=== PATIENT | male | born 1990 | race Caucasian/White ===

== ENCOUNTER 2018-12-02 06:18 | Observation (INO) | payer OTHER ==
--- NOTE | 2018-12-02 07:35 | ED ---
Altered Mental Status HPI - General Chief Complaint: Altered Mental Status Stated Complaint: altered mental status Time Seen by Provider: 12/02/18 07:00 Source: patient, family, RN notes reviewed Mode of arrival: ambulatory Limitations: altered mental status - History of Present Illness Initial Comments: This is a 28-year-old male with a history of asthma who does smoke who apparently was with her friend of his last night who ended up coming to the hospital and requiring intubation for respiratory failure for a possible drug overdose. Some clear with the patient's friend ingested or used a. Per a friend this with the patient at this time he did stumble and fall hitting his head prior to arrival his mother was called about 5 AM and notified of this event. He is very confused anxious fidgety no nausea vomiting no fevers chills sweats or other symptoms. He was found there are 17 tramadol and 21 amitriptyline missing from his friend's prescription and is unclear whether this patient took it or not. No other modifying factors. He seems a have no focal deficits per family MD Complaint: altered mental status - Related Data Home Medications Medication Instructions Recorded Confirmed Albuterol Inhaler [Ventolin Hfa 2 puff INHALATION RT-Q6H PRN 12/02/18 12/02/18 Inhaler] Allergies Allergy/AdvReac Type Severity Reaction Status Date / Time tetanus and diphtheria Allergy Unknown Verified 12/02/18 07:47 toxoids Childhood Review of Systems ROS Statement: Those systems with pertinent positive or pertinent negative responses have been documented in the HPI. ROS Other: All systems not noted in ROS Statement are negative. Limitations: ROS unobtainable due to patients medical condition Past Medical History Past Medical History: Asthma History of Any Multi-Drug Resistant Organisms: None Reported Past Surgical History: No Surgical Hx Reported Past Psychological History: No Psychological Hx Reported Smoking Status: Current every day smoker Past Alcohol Use History: Occasional Past Drug Use History: Marijuana General Exam - General Exam Comments Initial Comments: This is a well-developed well-nourished awake alert but confused male Limitations: altered mental status General appearance: alert, lethargic, other (Confused) Head exam: Present: atraumatic, normocephalic, normal inspection Eye exam: Present: normal appearance, PERRL, EOMI. Absent: scleral icterus, conjunctival injection, periorbital swelling ENT exam: Present: normal exam, mucous membranes moist Neck exam: Present: normal inspection, full ROM, other (No stridor JVD or bruits ). Absent: tenderness, meningismus, lymphadenopathy Respiratory exam: Present: normal lung sounds bilaterally. Absent: respiratory distress, wheezes, rales, rhonchi, stridor Cardiovascular Exam: Present: regular rate, normal rhythm, normal heart sounds. Absent: systolic murmur, diastolic murmur, rubs, gallop, clicks GI/Abdominal exam: Present: soft, normal bowel sounds. Absent: distended, tenderness, guarding, rebound, rigid Rectal exam: Present: deferred Extremities exam: Present: normal inspection, full ROM, normal capillary refill. Absent: tenderness, pedal edema, joint swelling, calf tenderness Back exam: Present: normal inspection, full ROM. Absent: tenderness, rash noted Neurological exam: Present: alert, altered, CN II-XII intact. Absent: motor sensory deficit Psychiatric exam: Present: depressed, flat affect Skin exam: Present: warm, dry, intact, normal color. Absent: rash Course Vital Signs 12/02/18 12/02/18 12/02/18 06:18 07:45 08:00 Temperature 97.9 F Pulse Rate 58 L 55 L 56 L Respiratory 12 Rate Blood Pressure 144/81 128/85 132/89 O2 Sat by Pulse 99 97 97 Oximetry 12/02/18 12/02/18 12/02/18 08:19 08:30 08:45 Temperature Pulse Rate 54 L 50 L 67 Respiratory Rate Blood Pressure 124/78 124/78 124/78 O2 Sat by Pulse 95 97 97 Oximetry 12/02/18 12/02/18 12/02/18 09:00 09:15 09:30 Temperature Pulse Rate 51 L 60 61 Respiratory Rate Blood Pressure 124/78 124/78 124/78 O2 Sat by Pulse 98 98 98 Oximetry 12/02/18 12/02/18 12/02/18 09:45 10:00 10:30 Temperature Pulse Rate 71 77 68 Respiratory Rate Blood Pressure 124/78 135/91 135/91 O2 Sat by Pulse 98 99 94 L Oximetry 12/02/18 12/02/18 12/02/18 11:00 11:30 12:00 Temperature Pulse Rate 77 61 50 L Respiratory Rate Blood Pressure 135/91 135/91 135/91 O2 Sat by Pulse 93 L 96 97 Oximetry - Reevaluation(s) Reevaluation #1: 12/02/18 13:01 Patient did seem a little more responsive after period time he was done which showed sinus bradycardia 46. Interval 134 QRS duration 96 QT since QTC of 466/7 Reevaluation #2: 12/02/18 13:01 Poison control was contacted and recommendation is for admission continued IV hydration repeat lab work seizure precautions repeat EKGs. I did discuss the case with Dr. Salter. Patient will be admitted Medical Decision Making - Lab Data Result diagrams: 12/02/18 07:25 12/02/18 07:25 Lab Results 12/02/18 12/02/18 12/02/18 Range/Units 07:25 07:25 07:25 WBC (3.8-10.6) k/uL RBC (4.30-5.90) m/uL Hgb (13.0-17.5) gm/dL Hct (39.0-53.0) % MCV (80.0-100.0) fL MCH (25.0-35.0) pg MCHC (31.0-37.0) g/dL RDW (11.5-15.5) % Plt Count (150-450) k/uL Neutrophils % % Lymphocytes % % Monocytes % % Eosinophils % % Basophils % % Neutrophils # (1.3-7.7) k/uL Lymphocytes # (1.0-4.8) k/uL Monocytes # (0-1.0) k/uL Eosinophils # (0-0.7) k/uL Basophils # (0-0.2) k/uL Sodium 143 (137-145) mmol/L Potassium 4.4 (3.5-5.1) mmol/L Chloride 110 H (98-107) mmol/L Carbon Dioxide 29 (22-30) mmol/L Anion Gap 4 mmol/L BUN 15 (9-20) mg/dL Creatinine 1.04 (0.66-1.25) mg/dL Est GFR (CKD-EPI)AfAm >90 (>60 ml/min/1.73 sqM) Est GFR (CKD-EPI)NonAf >90 (>60 ml/min/1.73 sqM) Glucose 95 (74-99) mg/dL Osmolality 296 (280-301) mosm/kg Plasma Lactic Acid Oc 0.7 (0.7-2.0) mmol/L Calcium 9.1 (8.4-10.2) mg/dL Total Bilirubin 0.8 (0.2-1.3) mg/dL AST 26 (17-59) U/L ALT 30 (21-72) U/L Alkaline Phosphatase 43 (38-126) U/L Ammonia (<30) umol/L Total Creatine Kinase 222 H (55-170) U/L CK-MB (CK-2) 2.9 H (0.0-2.4) ng/mL CK-MB (CK-2) Rel Index 1.3 Total Protein 6.4 (6.3-8.2) g/dL Albumin 3.9 (3.5-5.0) g/dL Salicylates <1.0 mg/dL Urine Opiates Screen (NotDetected) Ur Oxycodone Screen (NotDetected) Urine Methadone Screen (NotDetected) Ur Propoxyphene Screen (NotDetected) Acetaminophen <10.0 ug/mL Ur Barbiturates Screen (NotDetected) U Tricyclic Antidepress (NotDetected) Ur Phencyclidine Scrn (NotDetected) Ur Amphetamines Screen (NotDetected) U Methamphetamines Scrn (NotDetected) U Benzodiazepines Scrn (NotDetected) Urine Cocaine Screen (NotDetected) U Marijuana (THC) Screen (NotDetected) Serum Alcohol <10 mg/dL 12/02/18 12/02/18 12/02/18 Range/Units 07:25 07:25 10:29 WBC 6.4 (3.8-10.6) k/uL RBC 5.21 (4.30-5.90) m/uL Hgb 15.1 (13.0-17.5) gm/dL Hct 47.6 (39.0-53.0) % MCV 91.5 (80.0-100.0) fL MCH 28.9 (25.0-35.0) pg MCHC 31.6 (31.0-37.0) g/dL RDW 13.9 (11.5-15.5) % Plt Count 176 (150-450) k/uL Neutrophils % 55 % Lymphocytes % 34 % Monocytes % 5 % Eosinophils % 3 % Basophils % 1 % Neutrophils # 3.5 (1.3-7.7) k/uL Lymphocytes # 2.2 (1.0-4.8) k/uL Monocytes # 0.3 (0-1.0) k/uL Eosinophils # 0.2 (0-0.7) k/uL Basophils # 0.0 (0-0.2) k/uL Sodium (137-145) mmol/L Potassium (3.5-5.1) mmol/L Chloride (98-107) mmol/L Carbon Dioxide (22-30) mmol/L Anion Gap mmol/L BUN (9-20) mg/dL Creatinine (0.66-1.25) mg/dL Est GFR (CKD-EPI)AfAm (>60 ml/min/1.73 sqM) Est GFR (CKD-EPI)NonAf (>60 ml/min/1.73 sqM) Glucose (74-99) mg/dL Osmolality (280-301) mosm/kg Plasma Lactic Acid Oc (0.7-2.0) mmol/L Calcium (8.4-10.2) mg/dL Total Bilirubin (0.2-1.3) mg/dL AST (17-59) U/L ALT (21-72) U/L Alkaline Phosphatase (38-126) U/L Ammonia 10 (<30) umol/L Total Creatine Kinase (55-170) U/L CK-MB (CK-2) (0.0-2.4) ng/mL CK-MB (CK-2) Rel Index Total Protein (6.3-8.2) g/dL Albumin (3.5-5.0) g/dL Salicylates mg/dL Urine Opiates Screen Not Detected (NotDetected) Ur Oxycodone Screen Not Detected (NotDetected) Urine Methadone Screen Not Detected (NotDetected) Ur Propoxyphene Screen Not Detected (NotDetected) Acetaminophen ug/mL Ur Barbiturates Screen Not Detected (NotDetected) U Tricyclic Antidepress Detected H (NotDetected) Ur Phencyclidine Scrn Not Detected (NotDetected) Ur Amphetamines Screen Not Detected (NotDetected) U Methamphetamines Scrn Not Detected (NotDetected) U Benzodiazepines Scrn Not Detected (NotDetected) Urine Cocaine Screen Not Detected (NotDetected) U Marijuana (THC) Screen Detected H (NotDetected) Serum Alcohol mg/dL - EKG Data -: EKG Interpreted by Me EKG shows normal: sinus rhythm (Sinus bradycardia rate of 54. Interval 140 QRS duration 80 QT since QTC 4:[address]-T wave changes are noted T waves are somewhat prominent) - Radiology Data Radiology results: report reviewed (Imaging was reviewed no acute findings.), image reviewed Critical Care Time Critical Care Time: Yes Critical Care Time: 39 minutes of critical care time which includes initial presentation with history physical labs x-rays several reevaluation the patient discussed with the patient's mother on several occasions. Poison control was contacted by nursing staff. Patient case discussed with the main physician initial orders and documentation of the above Disposition Clinical Impression: Altered mental status, Tricyclic antidepressant overdose of undetermined intent , Bradycardia, Asthma, Smoking Disposition: ADMITTED IP TO THIS [facility] Condition: Serious Referrals: None,Stated [Primary Care Provider] - 1-2 days
[2018-12-02 07:50] LABS: Basophils % (A) 1 %; Eosinophils # (A) 0.2 k/uL (0-0.7); Eosinophils % (A) 3 %; HCT 47.6 % (39.0-53.0); HGB 15.1 gm/dL (13.0-17.5); Lymphocytes # (A) 2.2 k/uL (1.0-4.8); Lymphocytes % (A) 34 %; MCH 28.9 pg (25.0-35.0); MCHC 31.6 g/dL (31.0-37.0); MCV 91.5 fL (80.0-100.0); Mean Platelet Volume 7.5; Monocytes # (A) 0.3 k/uL (0-1.0); Monocytes % (A) 5 %; Neutrophils # (A) 3.5 k/uL (1.3-7.7); Neutrophils % (A) 55 %; Platelet Count 176 k/uL (150-450); RBC 5.21 m/uL (4.30-5.90); RDW 13.9 % (11.5-15.5); WBC 6.4 k/uL (3.8-10.6)
[2018-12-02 08:06] LABS: ALT 30 U/L (21-72); AST 26 U/L (17-59); Acetaminophen <10.0 ug/mL; Albumin 3.9 g/dL (3.5-5.0); Alcohol <10 mg/dL; Alkaline Phosphatase 43 U/L (38-126); Anion Gap 4 mmol/L; Blood Urea Nitrogen 15 mg/dL (9-20); Calcium 9.1 mg/dL (8.4-10.2); Carbon Dioxide 29 mmol/L (22-30); Chloride 110 mmol/L (98-107); Glucose 95 mg/dL (74-99); Potassium 4.4 mmol/L (3.5-5.1); Salicylate <1.0 mg/dL; Sodium 143 mmol/L (137-145); Total Bilirubin 0.8 mg/dL (0.2-1.3); Total Protein 6.4 g/dL (6.3-8.2)
--- NOTE | 2018-12-02 08:19 | CT ---
EXAMINATION TYPE: CT brain wo con DATE OF EXAM: 12/02/2018 COMPARISON: None HISTORY: Altered mental status CT DLP: 1212.4 mGycm. Automated Exposure Control for Dose Reduction was Utilized. TECHNIQUE: CT scan of the head is performed without contrast. FINDINGS: There is no acute intracranial hemorrhage, mass effect, or midline shift identified. The ventricles and sulci are within normal limits in size. Scant mucosal thickening is seen within the ethmoid sinuses. The globes are intact and the remaining visualized sinuses are clear. IMPRESSION: No acute intracranial hemorrhage, mass effect, or midline shift is seen.
[2018-12-02 08:23] LABS: Creatine Kinase MB 2.9 ng/mL (0.0-2.4)
--- NOTE | 2018-12-02 08:23 | XR ---
EXAMINATION TYPE: XR chest 2V DATE OF EXAM: 12/02/2018 COMPARISON: NONE HISTORY: Lethargy and weakness per technologist. Cough per order. TECHNIQUE: Frontal and lateral views of the chest are obtained. FINDINGS: Overlying EKG leads are seen. There is no focal air space opacity, pleural effusion, or pn eumothorax seen. The cardiac silhouette size is within normal limits. The osseous structures are i ntact. IMPRESSION: No acute cardiopulmonary process.
[2018-12-02] MEDS ORDERED: SODIUM CHLORIDE 0.9% 1,000 ML IV STA (08:53)
[2018-12-02 11:10] LABS: Amphetamine Screen,Urine Not Detected (NotDetected); Barbiturate Screen,Urine Not Detected (NotDetected); Benzodiazepines Screen,Urine Not Detected (NotDetected); Cocaine Screen,Urine Not Detected (NotDetected); Methadone Screen, Urine Not Detected (NotDetected); Opiate Screen,Urine Not Detected (NotDetected); Oxycodone Screen, Urine Not Detected (NotDetected); Phencyclidine Screen,Urine Not Detected (NotDetected); Tricyclic Antidepressant,Urine Detected (NotDetected); Urn Cannabinoid Scrn Detected (NotDetected)
[2018-12-02] MEDS ORDERED: NALOXONE 0.4 MG/ML 1 ML VIAL IV PRN (13:05)
--- NOTE | 2018-12-02 17:10 | P.HPIM ---
History of Present Illness 28-year-old was brought in by the family as patient has been acting abnormal and excessively drowsy patient is oriented 3 when I valid the patient. Unable to get much of the history from the patient as patient is excessively drowsy. Heparin drip patient was brought in by the family as he is more confused and anxious. Patient was believed to use tramadol and amitriptyline are is that although there is no clear-cut evidence patient is being admitted for monitoring overnight to monitor daily and when necessary intervals on telemetry. Patient urine drug screen is positive for tricyclic antidepressants. Patient admits to taking excessive sleeping pill although unintentional not trying to hurt himself patient says he is not depressed. Review of Systems REVIEW OF SYSTEMS: CONSTITUTIONAL: No fever, no malaise, no fatigue. HEENT: No recent visual problems or hearing problems. Denied any sore throat. CARDIOVASCULAR: No chest pain, orthopnea, PND, no palpitations, no syncope. PULMONARY: No shortness of breath, no cough, no hemoptysis. GASTROINTESTINAL: No diarrhea, no nausea, no vomiting, no abdominal pain. NEUROLOGICAL: No headaches, no weakness, no numbness. HEMATOLOGICAL: Denies any bleeding or petechiae. GENITOURINARY: Denies any burning micturition, frequency, or urgency. MUSCULOSKELETAL/RHEUMATOLOGICAL: Denies any joint pain, swelling, or any muscle pain. ENDOCRINE: Denies any polyuria or polydipsia. The rest of the 14-point review of systems is negative. Past Medical History Past Medical History: Asthma Additional Past Medical History / Comment(s): age 20 -dog bite(plastic sx to facial wounds), pt wants a pne vaccine while here. History of Any Multi-Drug Resistant Organisms: None Reported Past Surgical History: No Surgical Hx Reported Additional Past Surgical History / Comment(s): plastic sx to lip,oral,nose d/t dog bite. Past Anesthesia/Blood Transfusion Reactions: No Reported Reaction Additional Past Anesthesia/Blood Transfusion Reaction / Comment(s): pt has never recieved a blood transfusion Smoking Status: Current every day smoker - Past Family History Mother History Unknown: Yes Father History Unknown: Yes Medications and Allergies Home Medications Medication Instructions Recorded Confirmed Type Albuterol Inhaler [Ventolin Hfa 2 puff INHALATION RT-Q6H PRN 12/02/18 12/02/18 History Inhaler] Allergies Allergy/AdvReac Type Severity Reaction Status Date / Time tetanus and diphtheria Allergy Unknown Verified 12/02/18 07:47 toxoids Childhood Physical Exam Vitals: Vital Signs Temp Pulse Resp BP Pulse Ox 12/02/18 13:53 97.6 F 12/02/18 12:00 50 L 135/91 97 12/02/18 11:30 61 135/91 96 12/02/18 11:00 77 135/91 93 L 12/02/18 10:30 68 135/91 94 L 12/02/18 10:00 77 135/91 99 12/02/18 09:45 71 124/78 98 12/02/18 09:30 61 124/78 98 12/02/18 09:15 60 124/78 98 12/02/18 09:00 51 L 124/78 98 12/02/18 08:45 67 124/78 97 12/02/18 08:30 50 L 124/78 97 12/02/18 08:19 54 L 124/78 95 12/02/18 08:00 56 L 132/89 97 12/02/18 07:45 55 L 128/85 97 12/02/18 06:18 97.9 F 58 L 12 144/81 99 Intake and Output 12/02/18 12/02/18 12/02/18 06:59 14:59 22:59 Other: Weight 81.193 kg PHYSICAL EXAMINATION: GENERAL: The patient is drowsy and oriented x3, not in any acute distress. Well developed, well nourished. HEENT: Pupils are round and equally reacting to light. EOMI. No scleral icterus. No conjunctival pallor. Normocephalic, atraumatic. No pharyngeal erythema. No thyromegaly. CARDIOVASCULAR: S1 and S2 present. No murmurs, rubs, or gallops. PULMONARY: Chest is clear to auscultation, no wheezing or crackles. ABDOMEN: Soft, nontender, nondistended, normoactive bowel sounds. No palpable organomegaly. MUSCULOSKELETAL: No joint swelling or deformity. EXTREMITIES: No cyanosis, clubbing, or pedal edema. NEUROLOGICAL: Gross neurological examination did not reveal any focal deficits. SKIN: No rashes. Results CBC & Chem 7: 12/02/18 07:25 12/02/18 07:25 Labs: Abnormal Lab Results - Last 24 Hours (Table) 12/02/18 12/02/18 12/02/18 Range/Units 07:25 07:25 10:29 Chloride 110 H (98-107) mmol/L Total Creatine Kinase 222 H (55-170) U/L CK-MB (CK-2) 2.9 H (0.0-2.4) ng/mL U Tricyclic Antidepress Detected H (NotDetected) U Marijuana (THC) Screen Detected H (NotDetected) Assessment and Plan Plan: Possible unintentional overdose on tramadol and immediate A and: Patient will be monitored overnight for any seizures are daily prolongation from tramadol and amitriptyline . She denied any suicidal ideations -Chronic moderate intermittent asthma without any acute exacerbation -Nicotine abuse: When patient is more awake will provide counseling regarding this -Marijuana use -Due to prophylaxis: Early ambulation
[2018-12-02] MEDS: SODIUM CHLORIDE 0.9% 1,000 ML IV SCH ×2 (22:43→22:44)
[2018-12-03 02:45] LABS: Basophils % (A) 1 %; Eosinophils # (A) 0.2 k/uL (0-0.7); Eosinophils % (A) 3 %; HCT 46.1 % (39.0-53.0); HGB 14.6 gm/dL (13.0-17.5); Lymphocytes # (A) 2.1 k/uL (1.0-4.8); Lymphocytes % (A) 37 %; MCH 29.3 pg (25.0-35.0); MCHC 31.7 g/dL (31.0-37.0); MCV 92.3 fL (80.0-100.0); Mean Platelet Volume 7.5; Monocytes # (A) 0.3 k/uL (0-1.0); Monocytes % (A) 5 %; Neutrophils # (A) 3.1 k/uL (1.3-7.7); Neutrophils % (A) 53 %; Platelet Count 154 k/uL (150-450); RDW 13.9 % (11.5-15.5); WBC 5.8 k/uL (3.8-10.6)
[2018-12-03 02:55] LABS: ALT 29 U/L (21-72); AST 17 U/L (17-59); Albumin 3.1 g/dL (3.5-5.0); Alkaline Phosphatase 39 U/L (38-126); Anion Gap 2 mmol/L; Blood Urea Nitrogen 16 mg/dL (9-20); Calcium 8.6 mg/dL (8.4-10.2); Carbon Dioxide 28 mmol/L (22-30); Chloride 110 mmol/L (98-107); Glucose 87 mg/dL (74-99); Potassium 4.6 mmol/L (3.5-5.1); Sodium 140 mmol/L (137-145); Total Bilirubin 0.4 mg/dL (0.2-1.3); Total Protein 5.4 g/dL (6.3-8.2)
[2018-12-03] MEDS: SODIUM CHLORIDE 0.9% 1,000 ML IV SCH (05:58)
[2018-12-03 09:17] VITALS: BP 111/67; PULSE 74; RESP 20; TEMP 98.3
--- NOTE | 2018-12-03 10:38 | P.DS ---
Providers Date of admission: 12/02/18 13:05 Attending physician: Izabela Salter Primary care physician: Stated None Hospital Course: 28-year-old was brought in by the family as patient has been acting abnormal and excessively drowsy patient is oriented 3 when I valid the patient. Unable to get much of the history from the patient as patient is excessively drowsy. Heparin drip patient was brought in by the family as he is more confused and anxious. Patient was believed to use tramadol and amitriptyline are is that although there is no clear-cut evidence patient is being admitted for monitoring overnight to monitor daily and when necessary intervals on telemetry. Patient urine drug screen is positive for tricyclic antidepressants. Patient admits to taking excessive sleeping pill although unintentional not trying to hurt himself patient says he is not depressed. 12/03/2018 Patient is more awake bit tremulous from tramadol overdose no seizures will repeat the EKG if there is no MN prolongation or QT prolongation patient will be discharged today. Patient is awake alert oriented 3 PHYSICAL EXAMINATION: GENERAL: The patient is alert and oriented x3, not in any acute distress. Well developed, well nourished. Mild tremor HEENT: Pupils are round and equally reacting to light. EOMI. No scleral icterus. No conjunctival pallor. Normocephalic, atraumatic. No pharyngeal erythema. No thyromegaly. CARDIOVASCULAR: S1 and S2 present. No murmurs, rubs, or gallops. PULMONARY: Chest is clear to auscultation, no wheezing or crackles. ABDOMEN: Soft, nontender, nondistended, normoactive bowel sounds. No palpable organomegaly. MUSCULOSKELETAL: No joint swelling or deformity. EXTREMITIES: No cyanosis, clubbing, or pedal edema. NEUROLOGICAL: Gross neurological examination did not reveal any focal deficits. SKIN: No rashes. Assessment and Plan Plan: unintentional overdose on tramadol and amytriptyline: Patient is not depressedL ideations -Chronic moderate intermittent asthma without any acute exacerbation -Nicotine abuse: When patient is more awake will provide counseling regarding this -Marijuana use Patient Condition at Discharge: Serious Plan - Discharge Summary Discharge Rx Participant: No New Discharge Prescriptions: No Action Albuterol Inhaler [Ventolin Hfa Inhaler] 2 puff INHALATION RT-Q6H PRN PRN Reason: Shortness Of Breath Discharge Medication List Albuterol Inhaler [Ventolin Hfa Inhaler] 2 puff INHALATION RT-Q6H PRN 12/02/18 [ History] Follow up Appointment(s)/Referral(s): None,Stated [Primary Care Provider] - 1-2 days Discharge Disposition: HOME SELF-CARE
== END 2018-12-03 11:16 | disposition home or self-care (01) ==
LOC: EC 06:18 → 3SCARD 13:05 → INTOOBSV 13:05 → 3SCARD 20:02 → UNDODISIN 12-03 11:16
PROVIDERS: ADMIT Internal Medicine; ATTEND Internal Medicine
DX: T43.011A Poisoning by tricyclic antidepressants, accidental (unintentional), initial encounter (principal); T40.4X1A Poisoning by other synthetic narcotics, accidental (unintentional), initial encounter; R40.0 Somnolence; R41.82 Altered mental status, unspecified; R41.0 Disorientation, unspecified; F41.9 Anxiety disorder, unspecified; R00.1 Bradycardia, unspecified; F17.210 Nicotine dependence, cigarettes, uncomplicated; J45.20 Mild intermittent asthma, uncomplicated; Z88.7 Allergy status to serum and vaccine
CPT/HCPCS: 96360; 99291; 36415; 93005; 83930; 80053 ×2; 82140; 82550; 82553; 83605; 83735; 85025 ×2; 80306; 83520 ×2; 71046; 70450; G0378 ×2; G0480; 80320

== ENCOUNTER → 2019-03-19 | Outpatient (CLI) | payer OTHER ==
--- NOTE | 2019-03-20 08:18 | MR ---
EXAMINATION TYPE: MR shoulder RT wo con DATE OF EXAM: 03/19/2019 COMPARISON: None HISTORY: Right shoulder pain TECHNIQUE: Multiplanar, multisequence imaging of the right shoulder is performed without contrast. FINDINGS: There is motion on the exam. Rotator Cuff: There is some thickening and increased signal within the rotator cuff. No rachell rotator cuff tear. Acromioclavicular Joint: Intact Glenohumeral Joint: Maintained Labrum: There is some increased signal within the posterior labrum suggesting a tear with small para labral cyst Biceps Tendon: The long head of biceps is in normal location within bicipital groove. Small amount of fluid present along the long head of biceps tendon Bone marrow signal: No focal abnormal marrow signal is appreciated. Other: Small amount of fluid signal in the subacromial subdeltoid bursa IMPRESSION: Findings suggest tendinosis of the rotator cuff tendon, tear of the posterior glenoid labrum.
== END | disposition home or self-care (01) ==
LOC: RADMRIMAIN 20:23
PROVIDERS: ATTEND Nurse Practitioner Family
DX: S43.431A Superior glenoid labrum lesion of right shoulder, initial encounter (principal); X58.XXXA Exposure to other specified factors, initial encounter

== ENCOUNTER 2019-07-01 09:21 | Inpatient (IN) | payer MEDICAID, OTHER ==
--- NOTE | 2019-07-01 09:39 | ED ---
General Adult HPI - General Chief complaint: Altered Mental Status Stated complaint: mental health Time Seen by Provider: 07/01/19 09:21 Source: EMS, RN notes reviewed Mode of arrival: EMS Limitations: altered mental status - History of Present Illness Initial comments: This is a 28-year-old male here no past medical history or psychiatric history on him at this point patient was in court today. Patient was in court today and was acting normally according to the officer when all of a sudden he started banging his head extremely hard into the desk and started crying and would not respond to anybody verbally. Patient continued shaking rock until the precinct police captain were able to get to him and stop him from banging his head into the counter. Patient will not talk to me at this time he just is in bed crying and rocking back and forth. Officer states he did not lose consciousness. - Related Data Home Medications Medication Instructions Recorded Confirmed Albuterol Inhaler [Ventolin Hfa 1 - 2 puff INHALATION RT-Q6H PRN 07/01/19 07/01/19 Inhaler] Montelukast [Singulair] 10 mg PO HS 07/01/19 07/01/19 Naproxen 500 mg PO BID 07/01/19 07/01/19 Allergies Allergy/AdvReac Type Severity Reaction Status Date / Time tetanus and diphtheria Allergy Unknown Verified 07/01/19 09:24 toxoids Childhood Review of Systems ROS Statement: Those systems with pertinent positive or pertinent negative responses have been documented in the HPI. ROS Other: All systems not noted in ROS Statement are negative. Past Medical History Past Medical History: Asthma Additional Past Medical History / Comment(s): age 20 -dog bite(plastic sx to facial wounds), pt wants a pne vaccine while here. Aspergers History of Any Multi-Drug Resistant Organisms: None Reported Past Surgical History: No Surgical Hx Reported Additional Past Surgical History / Comment(s): plastic sx to lip,oral,nose d/t dog bite. Past Anesthesia/Blood Transfusion Reactions: No Reported Reaction Additional Past Anesthesia/Blood Transfusion Reaction / Comment(s): pt has never recieved a blood transfusion Past Psychological History: Bipolar, Schizophrenia Smoking Status: Current every day smoker - Past Family History Mother History Unknown: Yes Father History Unknown: Yes General Exam - General Exam Comments Initial Comments: GENERAL: Patient is well-developed and well-nourished. Patient is nontoxic and well- hydrated and is in no acute distress. Patient has a hematoma on the center of his forehead and in the superficial abrasion on the left side of his forehead. ENT: Neck is soft and supple. No significant lymphadenopathy is noted. Oropharynx is clear. Moist mucous membranes. Neck has full range of motion without eliciting any pain. EYES: The sclera were anicteric and conjunctiva were pink and moist. Extraocular movements were intact and pupils were equal round and reactive to light. Eyelids were unremarkable. PULMONARY: Unlabored respirations. Good breath sounds bilaterally. No audible rales rhonchi or wheezing was noted. CARDIOVASCULAR: There is a regular rate and rhythm without any murmurs gallops or rubs. ABDOMEN: Soft and nontender with normal bowel sounds. SKIN: Skin is clear with no lesions or rashes and otherwise unremarkable. NEUROLOGIC: Patient is alert and oriented unable to assess orientation because the patient is just rocking and crying and will not answer any questions or follow any commands. MUSCULOSKELETAL: Normal extremities with adequate strength and full range of motion. LYMPHATICS: No significant lymphadenopathy is noted PSYCHIATRIC: Patient is crying and is not responding to any questions asked. Limitations: altered mental status Course Vital Signs 07/01/19 07/01/19 09:31 12:15 Temperature 98.0 F Pulse Rate 80 76 Respiratory 17 16 Rate Blood Pressure 87/75 124/77 O2 Sat by Pulse 95 99 Oximetry Medical Decision Making - Lab Data Lab Results 07/01/19 Range/Units 10:41 Urine Opiates Screen Not Detected (NotDetected) Ur Oxycodone Screen Not Detected (NotDetected) Urine Methadone Screen Not Detected (NotDetected) Ur Propoxyphene Screen Not Detected (NotDetected) Ur Barbiturates Screen Not Detected (NotDetected) U Tricyclic Antidepress Not Detected (NotDetected) Ur Phencyclidine Scrn Not Detected (NotDetected) Ur Amphetamines Screen Not Detected (NotDetected) U Methamphetamines Scrn Not Detected (NotDetected) U Benzodiazepines Scrn Not Detected (NotDetected) Urine Cocaine Screen Not Detected (NotDetected) U Marijuana (THC) Screen Detected H (NotDetected) Disposition Clinical Impression: Acute psychosis Disposition: ADMITTED IP TO THIS HOSP Referrals: None,Stated [Primary Care Provider] - 1-2 days Time of Disposition: 13:13
--- NOTE | 2019-07-01 10:26 | CT ---
EXAMINATION TYPE: CT brain wo con DATE OF EXAM: 07/01/2019 COMPARISON: CT brain 12/02/2018 HISTORY: Head injury with pain CT DLP: 1113.4 mGycm. Automated Exposure Control for Dose Reduction was Utilized. TECHNIQUE: CT scan of the head is performed without contrast. FINDINGS: There is a large soft tissue hematoma overlying the frontal bone extending overlying the le ft parietal convexity. Calvarium is intact. Ventricular system is midline consistent with the patient's age. No acute intracranial hemorrhage or mass effect. IMPRESSION: 1. Large soft tissue hematoma overlying the frontal and parietal bone with no evidence of acute fract ure or acute intracranial hemorrhage.
[2019-07-01] MEDS ORDERED: ZIPRASIDONE 20 MG VIAL IM STA (11:12)
[2019-07-01] MEDS ORDERED: LORazepam 2 MG/ML INJ IM STA (11:12)
[2019-07-01 11:38] LABS: Amphetamine Screen,Urine Not Detected (NotDetected); Barbiturate Screen,Urine Not Detected (NotDetected); Benzodiazepines Screen,Urine Not Detected (NotDetected); Cocaine Screen,Urine Not Detected (NotDetected); Methadone Screen, Urine Not Detected (NotDetected); Opiate Screen,Urine Not Detected (NotDetected); Oxycodone Screen, Urine Not Detected (NotDetected); Phencyclidine Screen,Urine Not Detected (NotDetected); Tricyclic Antidepressant,Urine Not Detected (NotDetected); Urn Cannabinoid Scrn Detected (NotDetected)
[2019-07-01 14:08] VITALS: RESP 18
[2019-07-01] MEDS ORDERED: ALBUTEROL INHALER 60 PUFF/8 GM INHALER INHALATION PRN (14:57)
[2019-07-01] MEDS ORDERED: ZIPRASIDONE 20 MG VIAL IM PRN (14:58)
[2019-07-01] MEDS ORDERED: MAG HYDROX/AL HYDROX/SIMETH 30 ML CUP PO PRN (14:58)
[2019-07-01] MEDS ORDERED: ACETAMINOPHEN TAB 325 MG TAB PO PRN (14:58)
[2019-07-01] MEDS ORDERED: LORazepam 2 MG/ML INJ IM PRN (15:01)
[2019-07-01] MEDS: NICOTINE 14MG/24HR PATCH TRANSDERM SCH (15:34)
[2019-07-01] MEDS: MONTELUKAST 10 MG TAB PO SCH (20:10)
[2019-07-01] MEDS: NAPROXEN 250 MG TAB PO SCH (20:10)
[2019-07-01] MEDS: LORazepam 1 MG TAB PO PRN (21:28)
--- NOTE | 2019-07-02 07:17 | CONS ---
CONSULTATION DATE OF SERVICE: 07/01/2019. REASON FOR CONSULTATION: Advice regarding bronchial asthma and other medical issues requested by Dr. Cohen. HISTORY OF PRESENT ILLNESS: This 28-year-old gentleman with a past medical history of multiple medical problems including history of asthma, history of bipolar schizophrenia, history of nicotine dependence, history of THC being followed Dr. Moore in the outpatient setting was admitted with overdose previously to the hospital. Currently the patient is admitted with history of significant depression, some change in mental status. Patient was hitting his head causing some abrasion on the left side of the head also. The patient also had multiple cuts over the extremities mainly in the left upper and lower limbs. Patient also had significant wound around the left also previously according to him. There is no history of any fever, rigors. No history of headache, loss of consciousness or seizures. No chest pain or palpitation. Patient uses inhalers occasionally depending upon the wheezing frequency according to him. PAST MEDICAL HISTORY: History of asthma, history of previous overdose, bipolar schizophrenia, history of nicotine dependency, THC. MEDICATIONS: Medications prior to admission include home medications are: 1. Naprosyn 500 mg p.o. b.i.d. 2. Singulair 10 mg q.h.s. 3. Albuterol p.r.n. ALLERGIES: Allergies are TETANUS and DIPHTHERIA TOXOID. FAMILY HISTORY: No history of heart disease or strokes in the family. SOCIAL HISTORY: History of smoking, THC. Occasional alcohol. REVIEW OF SYSTEMS: ENT: No diminished hearing or diminished vision. CARDIOVASCULAR SYSTEM: No angina. RESPIRATORY SYSTEM: As mentioned earlier. GI: No nausea. : No dysuria. NERVOUS SYSTEM: No numbness or weakness. ALLERGY/IMMUNOLOGY: Asthma. MUSCULOSKELETAL: As mentioned earlier. HEMATOLOGY/ONCOLOGY: No history of anemia. ENDOCRINE: No history of diabetes or hypothyroidism. CONSTITUTIONAL: As mentioned earlier. DERMATOLOGY: As mentioned earlier. RHEUMATOLOGY: Negative. PSYCHIATRY: As mentioned earlier. PHYSICAL EXAMINATION: Patient is alert and oriented x3. Pulse 74, blood pressure 142/71, respiration 18, temperature 98.1, pulse ox 97% on room air. HEENT: Conjunctivae normal. Oral mucosa moist. NECK: No jugular venous distention. No carotid bruit. No lymph node enlargement. CARDIOVASCULAR: S1, S2 muffled. No S3, no S4. RESPIRATORY: Breath sounds diminished at the bases. No rhonchi. No crackles. ABDOMEN: Soft, nontender. No mass palpable. LEGS: No edema, no swelling. NERVOUS SYSTEM: Higher function as mentioned earlier. Crania nerves, eye movements are full in all directions. Pupils are normal. There is no facial asymmetry, the seventh nerve was normal. The neck movements are normal. No sensory abnormalities noted. Motor system power is normal. Moves all 4 limbs. No weakness noted. No sensory abnormalities. Gait is normal. SKIN: Multiple bruises as mentioned earlier on the left side of the head and as well as multiple superficial cuts on the left and right upper and lower limbs. JOINTS: No active deforming arthropathy. LYMPHATICS: No lymphadenopathy of the neck, axillae or groin. LABS: The labs are at this time show THC positive from the urine. ASSESSMENT: 1. Bronchial asthma, intermittent. 2. Depression with suicidal ideations. 3. Abrasion of the left forehead. 4. Multiple superficial cuts on the left upper and lower limbs. 5. Bipolar schizophrenia. 6. History of nicotine dependence. 7. History of polysubstance abuse. RECOMMENDATIONS AND DISCUSSION: In this 28-year-old gentleman who presented with multiple complex medical issues, at this time I recommend to continue current medication and symptomatic treatment. Resume the home medications. Otherwise, I would also recommend for the forearm. I would also be happy to review any abnormalities in the preliminary labs. Otherwise, patient may be asked to follow up with primary physician Dr. Moore closely after discharge. Thank you Dr. Cohen for letting us participate in the care of this patient. Albuterol inhaler has been ordered on a p.r.n. basis. MMODL / IJN: [id number] / [facility]
[2019-07-02 07:46] VITALS: BMI 25.9
[2019-07-02] MEDS: NAPROXEN 250 MG TAB PO SCH ×2 (08:36→20:39)
[2019-07-02] MEDS: NICOTINE 14MG/24HR PATCH TRANSDERM SCH (08:37)
[2019-07-02] MEDS: BACITRACIN 500 UNIT/GM OINT 28.4 GM TUBE TOPICAL SCH ×2 (08:37→20:41)
[2019-07-02] MEDS: ARIPiprazole 10 MG TAB PO SCH (09:33)
--- NOTE | 2019-07-02 09:35 | P.HP ---
Psychiatric H&P - . History & Physical: Allergies Allergy/AdvReac Type Severity Reaction Status Date / Time tetanus and diphtheria Allergy Unknown Verified 07/01/19 09:24 toxoids Childhood Vital Signs Temp 98.2 F 07/02/19 07:37 Pulse 97 07/02/19 07:37 Resp 18 07/02/19 07:37 BP 109/77 07/02/19 07:37 Pulse Ox 97 07/01/19 14:00 Intake & Output 07/01/19 07/02/19 07/02/19 18:59 06:59 18:59 Weight 81.647 kg Laboratory Last Values Urine Opiates Screen Not Detected (NotDetected) 07/01/19 10:41 Ur Oxycodone Screen Not Detected (NotDetected) 07/01/19 10:41 Urine Methadone Screen Not Detected (NotDetected) 07/01/19 10:41 Ur Propoxyphene Screen Not Detected (NotDetected) 07/01/19 10:41 Ur Barbiturates Screen Not Detected (NotDetected) 07/01/19 10:41 U Tricyclic Antidepress Not Detected (NotDetected) 07/01/19 10:41 Ur Phencyclidine Scrn Not Detected (NotDetected) 07/01/19 10:41 Ur Amphetamines Screen Not Detected (NotDetected) 07/01/19 10:41 U Methamphetamines Scrn Not Detected (NotDetected) 07/01/19 10:41 U Benzodiazepines Scrn Not Detected (NotDetected) 07/01/19 10:41 Urine Cocaine Screen Not Detected (NotDetected) 07/01/19 10:41 U Marijuana (THC) Screen Detected (NotDetected) H 07/01/19 10:41 07/02/19 09:24 IDENTIFYING DATA: This patient is a 28-year-old male who was admitted to the mental health unit from court after he intentionally struck his head on the bench as a suicide attempt. HPI: The patient presented after he reportedly struck his head several times on the bench at court. He indicates today that it was a suicide attempt. He states he's been feeling depressed and overwhelmed and feels hopeless. He was in the court room waiting for his hearing. He was trying to communicate with his mother and the deputy apparently told him he could not continue that activity. The patient became overwhelmed by that direction. The patient indicated that he had been in [facility] since Sunday and he had been cutting his arm without their knowledge. He describes symptoms of depression and suicidal ideation for the last 2 months. In October on the 120 Ativan and intentionally cut his calf is past January which required sutures. He reports he feels sad he is tearful on a regular basis. He indicates his appetite and sleep have been fluctuating. He reports a history of manic episodes where he will have increased energy and decreased need for sleep feelings of euphoria increased goal-directed activity and this will last for at least 3-4 days consecutively. He is very vague and guarded when asked about symptoms of psychosis. It appears from his reaction the is experiencing hallucinations but he will not we'll slowly verbalize that information. Each time I ask him about nations he looks down and becomes tearful. He does endorse ideas of reference but will not provide specifics. At this time he is reporting no thoughts of harming others. He indicates he resides with his mother and there are no firearms at home. He states he's previously been diagnosed with schizophrenia and Asperger's bipolar disorder and ADHD. He reports that him and his mother had talked about getting him into mental health treatment and he was scheduled to see clinician's this week. PAST PSYCHIATRIC HISTORY: Is his first inpatient psychiatric hospitalization, this most recent head injury would be his third suicide attempt. He reports being prescribed no psychotropic medications other than Adderall and Ritalin. Concerning his overdose in October he states he took 120 Ativan and didn't tell anybody and slept for 2 days. He indicates that he wants help now and is agreeable to treatment. PMH: Asthma, history of tendon tear in his right shoulder ALLERGIES: Tetanus immunization MEDICATIONS: Naprosyn CHEMICAL DEPENDENCY HISTORY: He reports using alcohol rarely although he does have a history of alcohol use disorder for which he went to rehab 2 years ago. He has abused benzodiazepines in the past he has experimented with cocaine and heroin methamphetamine. He uses marijuana on a daily basis. He attended rehab once as noted above. FAMILY PSYCHIATRIC HISTORY: He indicates his uncle had an unspecified mental illness, no suicides in the family FAMILY CHEMICAL DEPENDENCY HISTORY: He reports his father used crack cocaine and he identifies numerous other family members who have used illicit drugs SOCIAL HISTORY: The patient is single he is not he has no children he resides with his mother and states he gets along with her well. He has no siblings. He was raised by his mother he states his father was verbally abusive. He identifies no other history of abuse. He is currently unemployed he has an 11th grade education and later earned his GED. He did participate in special education classes. Along the way he states he was diagnosed with Asperger's. No history of service. He is originally from [facility] but lives in [place] with his mother more recently. He indicates they have moved several times. He was in court on charges related to credit fraud and use of analogs. He was previously arrested for malicious destruction of property he states he put shampoo in somebody's hot tub MENTAL STATUS EXAM: The patient is alert he has his hair short he wears a craven he is dressed in his own clothing. He has a large hematoma on his left fore head. He demonstrates superficial self-induced lacerations on his left arm that appear to be noninfected. Eye contact is intermittent he often looks down the table. He describes his mood as sad he is tearful during the session especially when I inquire about symptoms of psychosis. He reports ongoing suicidal thoughts but no homicidal ideation. He is nonspecific regarding auditory and visual hallucinations. It appears that he may be experiencing no symptoms. He was distracted at times and once during the interview he did speak out loud to himself. He demonstrated no verbal or physical aggressiveness. He was directable. He is oriented to person place and date. He is able to name the days the week backwards. He demonstrates no involuntary repetitive movements. STRENGTHS/WEAKNESSES: Strengths: Housing, support from mother weaknesses: Current legal interaction INTELLECTUAL FUNCTIONING: Below average IMPRESSIONS: [] 1. Bipolar disorder and specified rule out bipolar 1 disorder most recent depressed with psychosis, rule out schizoaffective disorder, rule out autism spectrum disorder formally referred to his Asperger's, cannabis use disorder, alcohol use disorder, rule out cocaine and heroin and methamphetamine use disorders PLAN: The patient has been admitted to the mental health unit he is willing to sign in voluntarily. We reviewed his presenting symptoms and treatment options. Although he is not explicitly endorsing psychosis he appears to be experiencing some hallucinations and possibly specific delusions. He endorses a history of manic episodes. I will initiate Abilify 10 mg daily to address those symptoms. We discussed the potential benefits and side effects of Abilify and his questions were answered. He will be seen by internal medicine for routine history and physical exam. He has undergone imaging of his head after the intentional head injury. There were no acute findings. Social work will meet with the patient to include a psychosocial assessment and for discharge planning purposes. We will monitor him for safety and encourage appropriate participation in the milieu. We will involve his mother in treatment and discharge planning as he will allow.
[2019-07-02] MEDS: MONTELUKAST 10 MG TAB PO SCH (20:39)
[2019-07-02] MEDS: MAGNESIUM HYDROXIDE 2,400 MG/10 ML CUP PO PRN (20:39)
[2019-07-02] MEDS: LORazepam 1 MG TAB PO PRN (22:12)
[2019-07-03] MEDS: ARIPiprazole 10 MG TAB PO SCH (07:50)
[2019-07-03] MEDS: NICOTINE 14MG/24HR PATCH TRANSDERM SCH (07:50)
[2019-07-03] MEDS: NAPROXEN 250 MG TAB PO SCH ×2 (07:50→20:20)
[2019-07-03] MEDS: BACITRACIN 500 UNIT/GM OINT 28.4 GM TUBE TOPICAL SCH ×2 (07:52→16:49)
[2019-07-03 09:46] LABS: Basophils % (A) 1 %; Eosinophils # (A) 0.2 k/uL (0-0.7); Eosinophils % (A) 3 %; HCT 47.9 % (39.0-53.0); HGB 15.7 gm/dL (13.0-17.5); Lymphocytes # (A) 1.2 k/uL (1.0-4.8); Lymphocytes % (A) 18 %; MCH 30.1 pg (25.0-35.0); MCHC 32.9 g/dL (31.0-37.0); MCV 91.7 fL (80.0-100.0); Mean Platelet Volume 7.6; Monocytes # (A) 0.3 k/uL (0-1.0); Monocytes % (A) 5 %; Neutrophils # (A) 4.8 k/uL (1.3-7.7); Neutrophils % (A) 73 %; Platelet Count 158 k/uL (150-450); RBC 5.22 m/uL (4.30-5.90); RDW 13.7 % (11.5-15.5); WBC 6.6 k/uL (3.8-10.6)
[2019-07-03 10:01] LABS: ALT 26 U/L (21-72); AST 24 U/L (17-59); African American GFR (CKD) >90 (>60 ml/min/1.73 sqM); Albumin 4.1 g/dL (3.5-5.0); Alkaline Phosphatase 51 U/L (38-126); Anion Gap 6 mmol/L; Blood Urea Nitrogen 16 mg/dL (9-20); Calcium 9.6 mg/dL (8.4-10.2); Carbon Dioxide 30 mmol/L (22-30); Chloride 106 mmol/L (98-107); Cholesterol 146 mg/dL (<200); Glucose 88 mg/dL (74-99); HDL Cholesterol 26 mg/dL (40-60); LDL Cholesterol,Calculated 104 mg/dL (0-99); Non-African American GFR(CKD) >90 (>60 ml/min/1.73 sqM); Potassium 5.5 mmol/L (3.5-5.1); Sodium 142 mmol/L (137-145); Total Bilirubin 0.7 mg/dL (0.2-1.3); Triglycerides 80 mg/dL (<150)
--- NOTE | 2019-07-03 11:07 | P.PN ---
Progress Note - Text Interval history: The patient is found in his room he follows me to an interview room. He reports struggling with mood symptoms. He states that he is trying to write down things rather than act on them. We discussed other techniques in terms of coping skill development as well. We discussed his psychotropic medications his questions were answered. He notes some initial nausea but was able to eat today. He does feel tired in the morning and we discussed possibly changing the Abilify to bedtime if needed. He has been communicating with his mother via phone. He has been attending some groups. He finds himself frustrated by peers that are manic/psychotic. Mental status exam: The patient is alert he is dressed in his own clothing. Hygiene grooming adequate. Speech is fluent spontaneous nonpressured. He reports his mood is still depressed he finds himself irritable at times. When asked about auditory hallucinations he continues to state "I don't know" he does endorse visual hallucinations where he will see a shadow we human figure in his room at night. He states he will pull the covers over his eyes he can't see any longer. He demonstrates some affect lability. When discussing his self- injurious behavior in the court room he becomes tearful. He does reconstitute however with supportive statements and validation. Intellectually it's estimated that he is below average. He demonstrates no verbal or physical aggressiveness he demonstrates no involuntary repetitive movements. Plan: The patient will continue on the Abilify as written. He is encouraged to fully participate in the milieu. We will monitor him for safety. We will consider titrating the Abilify if needed we will consider moving the time of the dose if needed. Vital signs reviewed.
[2019-07-03] MEDS: BACLOFEN 10 MG TAB PO PRN ×2 (16:50→20:22)
[2019-07-03 17:21] LABS: Hemoglobin A1C 5.1 % (4.0-6.0)
[2019-07-03] MEDS: MONTELUKAST 10 MG TAB PO SCH (20:21)
[2019-07-03] MEDS: MAGNESIUM HYDROXIDE 2,400 MG/10 ML CUP PO PRN (21:54)
[2019-07-03] MEDS: LORazepam 1 MG TAB PO PRN (23:42)
[2019-07-04] MEDS: BACLOFEN 10 MG TAB PO PRN ×2 (08:34→20:43)
[2019-07-04] MEDS: NAPROXEN 250 MG TAB PO SCH ×2 (08:35→20:41)
[2019-07-04] MEDS: BACITRACIN 500 UNIT/GM OINT 28.4 GM TUBE TOPICAL SCH ×2 (08:35→20:57)
[2019-07-04] MEDS: NICOTINE 14MG/24HR PATCH TRANSDERM SCH (08:36)
[2019-07-04] MEDS: ARIPiprazole 10 MG TAB PO SCH (08:36)
[2019-07-04] MEDS ORDERED: BENZOCAINE 20% HEMORRHOIDAL OINT 28GM RECTAL PRN (11:41)
--- NOTE | 2019-07-04 11:47 | P.PN ---
Progress Note - Text Interval history: The patient is found in the hallway he follows me to an interview room. He states that his mood seems to be improving. He indicates he is going to groups and finds this beneficial. Continues to communicate with his mother via phone. He has questions related to the Abilify and those were addressed. He is encouraged to continue with the medicine. Staff report that the patient's behavior has been good in groups there've been no reports of any agitation. Staff is found that he's been encouraging with other individuals at times. Mental status exam: The patient is alert he has a large healing hematoma on his forehead. He is alert pleasant and cooperative. He is dressed in his own clothing. Affect remains constricted he reports his mood is slowly improving. He does have some hopelessness thinking at times. He indicates feeling safe in the hospital. He reports no homicidal ideation. He is reporting no auditory or visual hallucinations or any specific delusions. He is demonstrating no tangential thinking loose associations or flight of ideas. Insight and judgment limited. He demonstrates no involuntary repetitive movements. Demonstrate no verbal or physical aggressiveness. He is oriented. Plan: The patient appears to be responding to the therapeutic milieu, he is encouraged to continue attending groups. We will continue the Abilify is written we will consider titrating the dose. He is endorsing no symptoms of psychosis today. Vital signs reviewed. He requires further hospitalization for treatment and evaluation.
[2019-07-04] MEDS: DOCUSATE 100 MG CAP PO SCH (11:57)
[2019-07-04] MEDS: MONTELUKAST 10 MG TAB PO SCH (20:41)
[2019-07-04] MEDS: LORazepam 1 MG TAB PO PRN (20:43)
[2019-07-05] MEDS: ARIPiprazole 10 MG TAB PO SCH (08:45)
[2019-07-05] MEDS: DOCUSATE 100 MG CAP PO SCH (08:45)
[2019-07-05] MEDS: NICOTINE 14MG/24HR PATCH TRANSDERM SCH (08:45)
[2019-07-05] MEDS: NAPROXEN 250 MG TAB PO SCH ×2 (08:45→20:49)
[2019-07-05] MEDS: BACITRACIN 500 UNIT/GM OINT 28.4 GM TUBE TOPICAL SCH ×2 (08:48→20:47)
[2019-07-05] MEDS: BACLOFEN 10 MG TAB PO PRN ×2 (08:50→18:52)
--- NOTE | 2019-07-05 12:09 | P.PN ---
Progress Note - Text Progress Note Date: 07/05/19 Interval history: Patient is seen in cross coverage today. He reports that he feels like the medication is making him tired. He describes that his mood is sad. He states that he feels like he is crying more than before he came in the hospital. He does make reference to experience of seeing things that look like people at nighttime. Mental status exam: He is alert and cooperative with the interview. His speech is fluent, not rapid or pressured. Thought processes are organized. His mood he describes as "sad." He denies any current thoughts of harm to self. He has not verbalize any thoughts of harm to others. No evidence of any agitation. He does make reference to seeing things at nighttime that looks like people. He does not appear to responding to any internal stimuli. Plan: We'll change the scheduling of Abilify to bedtime to see if this can minimize any potential side effects. We'll continue to monitor his mood and monitor regarding any thoughts of suicide. Monitor for any psychosis symptoms. We'll continue to cover this patient to the weekend.
[2019-07-05] MEDS: MAGNESIUM HYDROXIDE 2,400 MG/10 ML CUP PO PRN (14:14)
[2019-07-05] MEDS: MONTELUKAST 10 MG TAB PO SCH (20:49)
[2019-07-05] MEDS: LORazepam 1 MG TAB PO PRN (20:53)
[2019-07-06 06:48] VITALS: BP 128/74; PULSE 73; TEMP 97.8
[2019-07-06] MEDS: NICOTINE 14MG/24HR PATCH TRANSDERM SCH (09:05)
[2019-07-06] MEDS: NAPROXEN 250 MG TAB PO SCH (09:06)
[2019-07-06] MEDS: DOCUSATE 100 MG CAP PO SCH (09:06)
[2019-07-06] MEDS: BACITRACIN 500 UNIT/GM OINT 28.4 GM TUBE TOPICAL SCH (09:08)
[2019-07-06] MEDS: LORazepam 1 MG TAB PO PRN (09:10)
[2019-07-06] MEDS ORDERED: clonazePAM 0.5 MG TAB PO PRN (12:22)
--- NOTE | 2019-07-06 12:26 | P.PN ---
Progress Note - Text Progress Note Date: 07/06/19 Interval history: Patient is seen today in [facility] again. His potassium is elevated at 6.0 and plans are being made for him to be transferred to the medical floor for stabilization of his potassium. He does describe feeling anxiety today. He relates that the Ativan does not given benefit. He feels less tired today without having taken the Abilify in the morning. Mental status exam: He is alert and cooperative with the interview. He does fluent, not rapid or pressured. Thought processes organized. He does not report any hallucinations. He denies any thoughts of harm to self or others. He does not make any rachell delusional statements. He does show some range of affect. Plan: Patient will be maintained on Abilify which we have changed to bedtime scheduling. He is being transferred to the medical floor for stabilization of his potassium. We will trial Klonopin instead of Ativan for anxiety as needed. Continue to monitor for any medication side effects and monitor his ongoing response to treatment.
[2019-07-06] MEDS: BACLOFEN 10 MG TAB PO PRN (12:50)
[2019-07-06] MEDS ORDERED: ARIPiprazole 10 MG TAB PO SCH (21:00)
== END 2019-07-06 12:55 | disposition short-term general hospital (02) | DRG 885 ==
LOC: EC 09:21 → 3MHU 13:28
PROVIDERS: ADMIT Psychiatry & Neurology Psychiatry; ATTEND Psychiatry & Neurology Psychiatry
DX: F31.5 Bipolar disorder, current episode depressed, severe, with psychotic features (principal); R45.851 Suicidal ideations; E87.5 Hyperkalemia; F84.5 Asperger's syndrome; S00.83XA Contusion of other part of head, initial encounter; J45.20 Mild intermittent asthma, uncomplicated; F41.9 Anxiety disorder, unspecified; F90.9 Attention-deficit hyperactivity disorder, unspecified type; F12.90 Cannabis use, unspecified, uncomplicated; F10.11 Alcohol abuse, in remission; F14.11 Cocaine abuse, in remission; F11.11 Opioid abuse, in remission; F15.11 Other stimulant abuse, in remission; F17.210 Nicotine dependence, cigarettes, uncomplicated; Z71.6 Tobacco abuse counseling; Z91.5 Personal history of self-harm; Z79.1 Long term (current) use of non-steroidal anti-inflammatories (NSAID); Z79.899 Other long term (current) drug therapy; Z88.7 Allergy status to serum and vaccine; X83.8XXA Intentional self-harm by other specified means, initial encounter; Z81.8 Family history of other mental and behavioral disorders
CPT/HCPCS: 70450; 80051; 80053; 80061; 80306; 82075; 83036; 84443; 85025; 96372; 99285

== ENCOUNTER 2019-07-06 12:32 | Observation (INO) | payer OTHER ==
[2019-07-06 13:32] VITALS: RESP 16
[2019-07-06] MEDS ORDERED: NALOXONE 0.4 MG/ML 1 ML VIAL IV PRN (13:59)
[2019-07-06] MEDS ORDERED: ACETAMINOPHEN TAB 325 MG TAB PO PRN (13:59)
[2019-07-06] MEDS ORDERED: INSULIN REGULAR 100 UNIT/ML VIAL IV ONE (14:00)
[2019-07-06] MEDS ORDERED: DEXTROSE 50% SYRINGE 50 ML IVP STA (14:00)
[2019-07-06] MEDS ORDERED: SODIUM BICARB 8.4% 50 ML SYR (1 MEQ/ML) IV STA (14:01)
[2019-07-06] MEDS ORDERED: SODIUM POLYSTYRENE SULFONATE 15 GM/60 ML BOTTLE PO STA (14:01)
[2019-07-06] MEDS ORDERED: DOCUSATE 100 MG CAP PO PRN (14:02)
[2019-07-06] MEDS ORDERED: CALCIUM GLUCONATE 1 GM in SODIUM CHLORIDE 0.9% 100 ML IVPB ONE (14:02)
[2019-07-06] MEDS ORDERED: DEXTROSE 10 % IN WATER 250 ML IV STA (14:11)
[2019-07-06 15:09] VITALS: BP 143/69; PULSE 76
[2019-07-06 15:13] VITALS: BMI 27.3
--- NOTE | 2019-07-06 16:00 | HP ---
HISTORY AND PHYSICAL DATE OF SERVICE: 07/06/2019 CHIEF COMPLAINT: Hyperkalemia. HISTORY OF PRESENT ILLNESS: This 28-year-old gentleman with a past medical history of multiple medical problems including bronchial asthma, history of depression, history of bipolar schizophrenia, admitted to psychiatric evaluation for evaluation of depression and some abrasions of the forehead. Apparently the patient was eating lots of food. The patient is also drinking lots of grape juice and apple juice for constipation. The potassium was found to be elevated and today it is elevated at 6 and the patient transferred to medical floor and was admitted for further evaluation and treatment. There is no history of fever, rigors. No history of headache, loss of consciousness or seizures. The patient is taking Naprosyn. PAST MEDICAL HISTORY: History of bronchial asthma, depression, history of bipolar schizophrenia. MEDICATIONS: Naprosyn 500 mg p.o. b.i.d., Singulair 10 mg q.h.s., albuterol p.r.n. ALLERGIES: Tetanus toxoid. FAMILY HISTORY: No history of heart disease or strokes in the family. SOCIAL HISTORY: History of smoking, history of THC. REVIEW OF SYSTEMS: ENT: No diminished hearing or vision. Otherwise mentioned earlier, abrasion on the forehead. CARDIOVASCULAR: No angina. RESPIRATORY: No cough or hemoptysis. GI: No nausea. : As mentioned earlier. NERVOUS SYSTEM: No numbness or weakness. ALLERGY/IMMUNOLOGY: No asthma or hayfever. MUSCULOSKELETAL: As mentioned earlier. HEMATOLOGY: No history of anemia. ENDOCRINE: No history of diabetes, hypothyroid. CONSTITUTIONAL: As mentioned earlier. DERMATOLOGY: Negative. RHEUMATOLOGY: Negative. PSYCHIATRY: As mentioned earlier. PHYSICAL EXAMINATION: Alert and oriented x3. The pulse is 69, blood pressure 128/80, respiration 20, temperature is normal, pulse ox normal. HEENT: Conjunctivae normal. Abrasion of the left forehead which is healing. Oral mucosa moist. NECK: No jugular venous distention. No carotid bruit. No lymph node enlargement. CARDIOVASCULAR: S1, S2. No S3, no S4. RESPIRATORY: Breath sounds diminished in the bases. A few rhonchi, no crackles. ABDOMEN: Soft, nontender. No mass palpable. LEGS: No edema. No swelling. NERVOUS SYSTEM: Higher functions as mentioned. Moves all four limbs. No focal motor deficits. LYMPHATICS: No lymphadenopathy in the neck, axillae, groin. SKIN: As mentioned earlier. JOINTS: No active deforming arthropathy. LABS: CBC within normal limits and chemistry shows sodium 140. Potassium 6. CK-MB is 2.9. ASSESSMENT: 1. Hyperkalemia, possibly secondary to increased p.o. intake and as well as NSAIDs. 2. History of bronchial asthma, intermittent. 3. Depression with suicidal ideation. 4. Abrasion left forehead. 5. Multiple superficial cuts on the left upper and lower limbs. 6. History of bipolar schizophrenia. 7. History nicotine dependence. 8. History of polysubstance abuse. RECOMMENDATIONS AND DISCUSSION: This 28-year-old gentleman who presented with multiple medical issues, at this time I recommend to continue current medications except Naprosyn which can be stopped. Recommend low-potassium diet, dietary evaluation, insulin glucose regimen, Kayexalate, Dulcolax or Colace for constipation. We will follow the patient closely with psych and further recommendations to follow. See orders for details. Prognosis guarded. MMODL / IJN: [id number] /
[2019-07-06] MEDS ORDERED: BACLOFEN 10 MG TAB PO PRN (17:16)
[2019-07-06] MEDS ORDERED: ALBUTEROL NEBULIZED 2.5 MG/3 ML INHALATION PRN (17:16)
[2019-07-06] MEDS ORDERED: ARIPiprazole 10 MG TAB PO SCH (21:00)
[2019-07-06] MEDS ORDERED: HEPARIN SODIUM,PORCINE 5,000 UNIT/ML 1 ML VIAL SQ SCH (21:00)
[2019-07-06] MEDS ORDERED: MONTELUKAST 10 MG TAB PO SCH (21:00)
--- NOTE | 2019-07-07 06:03 | DS ---
DISCHARGE SUMMARY FINAL DIAGNOSES: 1. Hyperkalemia, possibly secondary to increased p.o. intake and as well as NSAIDs. 2. History of bronchial asthma, intermittent. 3. Depression, suicidal ideation. 4. Abrasion of the left forehead, improving. 5. Multiple superficial cuts in the left upper and lower limbs. 6. History of bipolar schizophrenia. 7. History of nicotine dependence. 8. History of polysubstance abuse. DISCHARGE DISPOSITION: The patient will be discharged in stable condition with guarded prognosis. HISTORY OF PRESENT ILLNESS: This 28-year-old gentleman with a past medical history of multiple medical problems admitted to psychiatric floor was transferred to medical floor with a potassium 6. Insulin glucose regimen and as well as Kayexalate has been given. Patient improved significantly. Recommend to stop the Naprosyn and stop the high potassium diet which the patient is taking including multiple juices and fruit. Otherwise recommend to repeat potassium. On exam, vitals are stable. CARDIOVASCULAR: S1, S2 muffled. ABDOMEN: Soft. NERVOUS SYSTEM: No focal deficits. DISCHARGE ADVICE AND MEDICATIONS: 1. low k cardiac. 2. Activity limited until followup. 3. Follow up with Psychiatry. 4. CBC and BMP in the morning. Medications are: 1. Abilify 10 mg q.h.s. 2. Baclofen 5 mg t.i.d. p.r.n. 3. Colace 100 mg daily. 4. Singulair 10 mg q.h.s. 5. Ventolin p.r.n. 6. Tylenol 650 q.6 p.r.n. 7. Hold Naprosyn. Low-potassium diet per dietary. MMODL / IJN: [id number] / [facility]
[2019-07-07] MEDS ORDERED: PANTOPRAZOLE 40 MG TABLET PO SCH (07:30)
[2019-07-07] MEDS ORDERED: DOCUSATE 100 MG CAP PO SCH (09:00)
== END 2019-07-06 18:34 ==
LOC: INTOOBSV 13:11 → 3SCARD 13:11 → UNDODISIN 18:34
PROVIDERS: ADMIT Hospitalist; ATTEND Hospitalist
DX: E87.5 Hyperkalemia (principal); S00.81XA Abrasion of other part of head, initial encounter; S81.812A Laceration without foreign body, left lower leg, initial encounter; S41.112A Laceration without foreign body of left upper arm, initial encounter; J45.20 Mild intermittent asthma, uncomplicated; R45.851 Suicidal ideations; F32.9 Major depressive disorder, single episode, unspecified; F20.9 Schizophrenia, unspecified; K59.00 Constipation, unspecified; Z87.891 Personal history of nicotine dependence; Z88.7 Allergy status to serum and vaccine; Z79.899 Other long term (current) drug therapy; Z79.1 Long term (current) use of non-steroidal anti-inflammatories (NSAID); X58.XXXA Exposure to other specified factors, initial encounter
CPT/HCPCS: 96374; 96375; 84132; G0378; G0379; J0610

== ENCOUNTER 2019-07-06 18:47 | Inpatient (IN) | payer MEDICAID, OTHER ==
[2019-07-06] MEDS ORDERED: MAG HYDROX/AL HYDROX/SIMETH 30 ML CUP PO PRN (19:49)
[2019-07-06] MEDS ORDERED: BACLOFEN 10 MG TAB PO PRN (19:52)
[2019-07-06] MEDS ORDERED: ALBUTEROL INHALER 60 PUFF/8 GM INHALER INHALATION PRN (19:52)
[2019-07-06] MEDS: MONTELUKAST 10 MG TAB PO SCH (20:51)
[2019-07-06] MEDS ORDERED: ARIPiprazole 10 MG TAB PO SCH (21:00)
[2019-07-06] MEDS: clonazePAM 0.5 MG TAB PO PRN (22:31)
[2019-07-07 08:55] LABS: African American GFR (CKD) >90 (>60 ml/min/1.73 sqM); Anion Gap 5 mmol/L; Blood Urea Nitrogen 14 mg/dL (9-20); Calcium 9.4 mg/dL (8.4-10.2); Carbon Dioxide 29 mmol/L (22-30); Chloride 108 mmol/L (98-107); Glucose 93 mg/dL (74-99); Potassium 5.7 mmol/L (3.5-5.1); Sodium 142 mmol/L (137-145)
[2019-07-07] MEDS ORDERED: DOCUSATE 100 MG CAP PO SCH ×2 (09:00→21:00)
[2019-07-07] MEDS ORDERED: NICOTINE 14MG/24HR PATCH TRANSDERM SCH (09:00)
[2019-07-07] MEDS ORDERED: SODIUM POLYSTYRENE SULFONATE 15 GM/60 ML BOTTLE PO STA (10:12)
[2019-07-07] MEDS: clonazePAM 0.5 MG TAB PO PRN ×2 (10:32→20:47)
[2019-07-07] MEDS ORDERED: ZIPRASIDONE 20 MG VIAL IM PRN (14:11)
[2019-07-07 14:51] VITALS: BMI 27.3
--- NOTE | 2019-07-07 16:12 | HP ---
HISTORY AND PHYSICAL DATE OF SERVICE: 07/07/2019. IDENTIFYING DATA: The patient is a 28-year-old male. He was initially admitted to the psychiatric unit 07/01/2019, then transferred to the medical floor 07/06/2019 and was transferred back to the psychiatric unit. CHIEF COMPLAINT: The patient was anxious and depressed. He had purposely hit his head on a bench. He has a diagnosis of bipolar disorder and Asperger's disorder along with substance use issues. HISTORY OF PRESENTING ILLNESS: The patient was admitted to the psychiatric unit 07/01/2019. I refer the reader to Dr. Cohen's admission note of 07/02/2019 for details. He was found to be hyperkalemic with a potassium of 6.0. On 07/06/2019, he was transferred to the medical floor, stabilized medically and was readmitted to the psychiatric unit. Overall, the patient has been doing fair. He has shown some progress through the course of his current hospitalization going back to the sixth. He notes a history of manic episodes that can last 1-2 weeks where he will get high energy, euphoric mood, grandiose and disorganized thoughts. He then can go in precipitously to depression where he will cry a lot. He will have irritability. Since his initial admission he has been doing better overall. He continues to have some ups and downs in his mood. He says that he can cry very easily for very little that sets him off. His sleep has been fair. He has been attending groups. He tolerates his psychotropic medications. MENTAL STATUS EXAM: Patient gave good eye contact. He was restless. He answered questions directly at times. His thoughts were a little tangential. His affect was intense at times. His mood somewhat dysphoric. He had a couple periods where he teared up when talking about some family issues. Otherwise, his mood was quiet though not clearly down or depressed. There was no outward evidence of thought disorder. Cognition was clear. Physical exam as per admission note of Dr. Cooper of 07/06/2019. ASSESSMENT: We will continue to focus on further assessment of mental health issues, mood stabilization and coordinating with outpatient resources for discharge planning. DIAGNOSES: 1. Bipolar affective disorder with psychotic features. 2. Autistic spectrum disorder. 3. Substance use disorder including cannabis, alcohol, cocaine, heroin and methamphetamines. 4. Hyperkalemia. 5. Asthma. RECOMMENDATIONS: Patient will be readmitted. I will continue the patient on Abilify and will increase his dose to 20 mg a day. I encouraged the patient to try to minimize use of Klonopin with an aim that we would have him off Klonopin altogether. Encouraged him to engage in the group activities and to address some of the social issues that he is aware of that are struggles for him. We will continue to focus on stabilization and discharge planning. GARY / JAQUAN: [id number] /
--- NOTE | 2019-07-07 16:31 | CONS ---
CONSULTATION DATE OF SERVICE: 07/07/2019 REASON FOR CONSULTATION: Advice regarding hyperkalemia, requested by Psychiatry. HISTORY OF PRESENT ILLNESS: This 28-year-old gentleman with a past medical history of multiple medical problems including depression, suicidal ideation, multiple abrasions, bipolar, schizophrenia was in the psych floor initially, but the patient was found to have hyperkalemia potassium 6. The patient subsequently transferred to medical floor. The patient was given insulin glucose regimen as well as Kayexalate. Potassium improved to 5 and the patient was subsequently transferred back to the psych floor. Today the potassium is again at 5.8, but apparently the patient was drinking juice and eating high potassium food also. Dietary evaluation pending at this time. There is no history of fever, rigors or chills. No history of headache, loss of consciousness or seizures at this time. PAST MEDICAL HISTORY: History of depression, suicidal ideation. Abrasions, history of bipolar, schizophrenia. MEDICATIONS: Prior to admission include home medications, current medications are: 1. Tylenol p.r.n. 2. Maalox 30 mL q.4 p.r.n. 3. Ventolin 1-2 puffs p.r.n. 4. Abilify 20 mg daily. 5. Lioresal 10 mg t.i.d. p.r.n. 6. Klonopin 0.5 mg b.i.d. 7. Colace 100 mg p.o. b.i.d. 8. Singulair 10 mg q.h.s. 9. Habitrol 14. 10.Geodon. PHYSICAL EXAM: Patient is alert, oriented x 3. Pulse 64, blood pressure 142/84, respiration 18, temperature 97.7, pulse ox 99% on room air. HEENT: Conjunctivae normal. Oral mucosa moist. NECK is no jugular venous distention. No carotid bruit. No lymph node enlargement. CARDIOVASCULAR SYSTEMS: S1, S2. RESPIRATORY: Breath sounds diminished in the bases. No rhonchi. No crackles. ABDOMEN: Soft, nontender. No mass palpable. LEGS: No edema. No swelling. NERVOUS SYSTEM: Higher functions as mentioned. Moves all four limbs. No focal motor or sensory deficits. LYMPHATICS: No lymph nodes palpable in the neck, axillae or groin. SKIN: No ulcer, rash or bleeding. JOINTS: No active deforming arthropathy. LAB: Showed sodium 142, potassium 5.7. ASSESSMENT: 1. Recurrent hyperkalemia, possibly dietary induced. 2. History of bronchial asthma, intermittent. 3. Depression, suicidal ideation. 4. Abrasion of the left forehead, healing. 5. Multiple superficial cuts in the left upper and lower limbs. 6. Bipolar schizophrenia. 7. History of nicotine dependence. 8. History of polysubstance abuse. RECOMMENDATIONS AND DISCUSSION: Recommend to continue current medications, continue to monitor and symptomatic treatment. Otherwise, I would recommend Kayexalate 30 g. Repeat potassium tomorrow morning. Low-potassium diet. Dietary evaluation. Continue the rest of the medications. Recommend close followup with primary physician in the outpatient setting. Further recommendations to follow. MMODL / IJN: [id number] /
[2019-07-07] MEDS: IBUPROFEN 600 MG TAB PO PRN (19:09)
[2019-07-07] MEDS: MONTELUKAST 10 MG TAB PO SCH (20:47)
[2019-07-07] MEDS: DOCUSATE 100 MG CAP PO SCH (20:47)
[2019-07-07] MEDS: BACLOFEN 10 MG TAB PO PRN (20:47)
[2019-07-08] MEDS: ACETAMINOPHEN TAB 325 MG TAB PO PRN (00:40)
[2019-07-08] MEDS: BACLOFEN 10 MG TAB PO PRN ×2 (08:21→18:44)
[2019-07-08] MEDS: clonazePAM 0.5 MG TAB PO PRN ×2 (08:21→20:43)
[2019-07-08] MEDS: NICOTINE 7MG/24HR PATCH TRANSDERM SCH (08:57)
[2019-07-08] MEDS: DOCUSATE 100 MG CAP PO SCH ×3 (09:12→20:42)
[2019-07-08 09:13] LABS: African American GFR (CKD) >90 (>60 ml/min/1.73 sqM); Anion Gap 9 mmol/L; Blood Urea Nitrogen 16 mg/dL (9-20); Calcium 9.3 mg/dL (8.4-10.2); Carbon Dioxide 25 mmol/L (22-30); Chloride 108 mmol/L (98-107); Glucose 88 mg/dL (74-99); Potassium 5.2 mmol/L (3.5-5.1); Sodium 142 mmol/L (137-145)
[2019-07-08] MEDS: IBUPROFEN 600 MG TAB PO PRN ×2 (11:10→18:43)
--- NOTE | 2019-07-08 11:44 | PN ---
PROGRESS NOTE DATE OF SERVICE: 07/08/2019. CHIEF COMPLAINT: The patient was anxious and depressed. He had purposely hit his head on a bench. He has a diagnosis of bipolar disorder and Asperger's disorder along with substance use issues. INTERVAL HISTORY: Patient has been doing fair. He said that he had a lot of anxiety last evening. The main concerns he had was some disruption among other patients on the unit. He said he was standing right next to one person who ended up tipping over a table right in front of him. He said he received Klonopin p.r.n. last evening. He said that he was quite anxious about the upcoming court hearing that he understood was to take place relating to his charges. He is yet to go to court over the charges. He said he only slept about 4 hours last night, mainly because he was worried about the court issues. This morning he has been up. He comes out in the day area. He will interact some with others. He says that his mother was at court today though as yet there is not actually a hearing to take place. He said that one of his charges has been reduced. He says he has no idea what to anticipate though he is waiting to hear from his mother to hopefully get more information. He was quite anxious this morning and at 8:20 he received another Klonopin 0.5 mg. He has not had problems with the increase in the Abilify. He tolerates his psychotropic medications. MENTAL STATUS: Patient gave fair eye contact. Psychomotor activity was somewhat restless. He answered questions with direct responses. His thoughts were clear. His affect was anxious and constricted. His mood down. He was moderately distressed. There was no indication of thought disorder. ASSESSMENT: I will continue the current diagnosis and treatment plan. I will continue psychotropic medications the same. I discussed discharge planning issues with the patient and we anticipate the patient returning to correction. The patient expects to hear from his mother sometime this morning to get more information about his legal status. I had discussed with the patient that we can plan out discharge based on what information she is able to provide. We will continue to focus on stabilization and discharge planning. GARY / JAQUAN: [id number] /
[2019-07-08] MEDS: MAGNESIUM HYDROXIDE 2,400 MG/10 ML CUP PO PRN (14:19)
[2019-07-08] MEDS: MONTELUKAST 10 MG TAB PO SCH (20:42)
[2019-07-09] MEDS: DOCUSATE 100 MG CAP PO SCH ×2 (08:45→20:53)
[2019-07-09] MEDS: NICOTINE 7MG/24HR PATCH TRANSDERM SCH (08:45)
[2019-07-09] MEDS: BACLOFEN 10 MG TAB PO PRN ×2 (08:47→20:53)
[2019-07-09 10:04] LABS: African American GFR (CKD) >90 (>60 ml/min/1.73 sqM); Anion Gap 9 mmol/L; Blood Urea Nitrogen 16 mg/dL (9-20); Calcium 9.3 mg/dL (8.4-10.2); Carbon Dioxide 24 mmol/L (22-30); Chloride 109 mmol/L (98-107); Glucose 84 mg/dL (74-99); Potassium 4.9 mmol/L (3.5-5.1); Sodium 142 mmol/L (137-145)
[2019-07-09] MEDS: MAGNESIUM HYDROXIDE 2,400 MG/10 ML CUP PO PRN (10:39)
[2019-07-09] MEDS: clonazePAM 0.5 MG TAB PO PRN (15:02)
[2019-07-09] MEDS: LACTULOSE 20 GM/30 ML CUP PO SCH ×3 (15:02→21:30)
--- NOTE | 2019-07-09 16:24 | PN ---
PROGRESS NOTE DATE OF SERVICE: 07/09/2019. CHIEF COMPLAINT: The patient was anxious and depressed. He had purposely hit his head on a bench. He has a diagnosis of bipolar disorder and Asperger's disorder along with substance use issues. INTERVAL HISTORY: Patient has been doing fair. He had a quiet evening last night. He comes out in the day area. He will be social with peers. He requested Klonopin last night for sleep and staff were able to direct him towards some relaxation techniques to help. He slept fairly well last night. Today he has been up. He comes out in the day area. He generally has been comfortable when he is seen in various settings. He will attend most groups. It is noteworthy that midmorning he became quite upset and agitated about the possibility that he would be going back to snf today. He got very angry and intense. He was crying. He punched a wall. He made statements such as "I might as well kill myself." He took a comb and scratched his left forearm. We discussed issues with the patient in regards to whether he would go back to snf in a situation where he might require close observation that would place quite a bit restrictions on him. We discussed the option that if he continued in the hospitalization until tomorrow and felt he could work on some coping mechanisms, that there would be benefit from extending the stay another day. If he did not feel that would be something that would help him, we would end up discharging him today and then would need to let snf staff know that he could have some behavioral concerns. The patient was able to calm himself. He said that he would work on coping mechanisms. He went to group. He has been appropriate the rest of the day. His mood has improved. He understands that tomorrow he will be discharged to snf. He tolerates his psychotropic medications. He did talk to me about feeling that he had just felt dull on the Abilify and that he did not think it was helping. I talked about the option of his continuing on the medicine for another 1-2 weeks to see how he does and see if he does not see some improvement over time. He was willing to do that. We discussed a followup planning with Mental Health while he is in snf. He overall appears to tolerate his psychotropic medication. MENTAL STATUS: Patient gave fairly good eye contact. Psychomotor activity was restless. At one point in the day, he was calm, pleasant, and interactive. At another point, he was angry and intense relating to the idea of discharge back to snf. After that, his mood improved considerably. He was pleasant. He was not distressed at all after being able to address his concerns. ASSESSMENT: I will continue the current diagnosis and treatment plan. I will continue psychotropic medications the same. We reviewed discharge planning issues. Plan will be to discharge the patient tomorrow back to snf. GARY / JAQUAN: [id number] /
[2019-07-09] MEDS: MONTELUKAST 10 MG TAB PO SCH (20:53)
[2019-07-09] MEDS: BACITRACIN 500 UNIT/GM OINT 28.4 GM TUBE TOPICAL SCH (20:56)
[2019-07-09] MEDS: IBUPROFEN 600 MG TAB PO PRN (22:25)
[2019-07-10 07:20] VITALS: BP 134/83; PULSE 89; RESP 18; TEMP 98.1
[2019-07-10] MEDS: DOCUSATE 100 MG CAP PO SCH (08:33)
[2019-07-10] MEDS: NICOTINE 7MG/24HR PATCH TRANSDERM SCH (08:34)
[2019-07-10] MEDS: BACITRACIN 500 UNIT/GM OINT 28.4 GM TUBE TOPICAL SCH (08:35)
[2019-07-10] MEDS: LACTULOSE 20 GM/30 ML CUP PO SCH ×2 (08:36→12:52)
[2019-07-10] MEDS: IBUPROFEN 600 MG TAB PO PRN (08:38)
[2019-07-10] MEDS: clonazePAM 0.5 MG TAB PO PRN (08:38)
[2019-07-10] MEDS: BACLOFEN 10 MG TAB PO PRN (08:49)
[2019-07-10] MEDS ORDERED: MONTELUKAST 10 MG TAB PO SCH (09:45)
--- NOTE | 2019-07-10 10:16 | DS ---
DISCHARGE SUMMARY DATE OF ADMISSION: 07/06/2019 DATE OF DISCHARGE: 07/10/2019 ADMISSION AND DISCHARGE DIAGNOSES: 1. Bipolar affect disorder with psychotic features. 2. Autistic spectrum disorder .. 3. Substance use disorder, including cannabis, alcohol, cocaine, heroin and methamphetamines. 4. Hyperkalemia. 5. Asthma. HISTORY OF PRESENTING ILLNESS: The patient is a 28-year-old male. He had a previous admission 07/01/2019. He was transferred to the medical floor 07/06/2019 due to hyperkalemia with a potassium level of 6. He was returned back to the psychiatric unit for readmission on 07/06/2019. His initial hospitalization 07/01/2019 was precipitated by a situation when he was at court. He became very distressed and started hitting his head on a bench. He stated he was feeling overwhelmed by being arrested and in correction and having to address a number of legal issues. He had been in correction since the previous Sunday and had been cutting his arm without correction staff knowledge. He said he did that just to relieve stress. He has been having ongoing problems with depression and suicidal thinking for the previous 2 months. It is noted that in October 2018 he overdosed on Ativan. In addition in January of this year, he intentionally cut his calf requiring sutures, again out of distress. He has a history of bipolar symptoms with episodes that can last a week or 2 where he will get high energy, euphoric mood, grandiosity, and disorganized thoughts. He can go from manic symptoms into depression precipitously. He also has been diagnosed with Asperger's disorder. There is a history of significant substance use history. Urine drug screen was positive for marijuana. He was admitted for further evaluation. Past medical history and physical exam as per medical evaluation on his previous admission and during his medical stay. Please refer to admission notes and progress notes of Dr. Cooper. COURSE OF HOSPITALIZATION: The patient was admitted for comprehensive medical psychiatric and psychosocial evaluation. We engaged the patient in individual and group therapeutic activities. On admission, the patient was continued on his psychotropic medications, which primarily was Abilify. He was on 10 mg a day. His dose was increased to 20 mg a day. He also was prescribed Klonopin 0.5 mg twice a day p.r.n. Overall, patient did fairly well. He would interact with peers. He attended groups sporadically. He was cooperative with care. He interacted appropriately with staff and peers. Throughout his hospital stay he did not have any significant behavioral difficulties until the day prior to discharge. The patient understood that he would be returning to correction following his hospitalization. When the plan was set for him to be discharged on 07/09 he became very angry. He made statements about being kept in the hospital on Sunday when he could have gone to court and had his legal issues addressed. He said now he had to wait in correction for 2 more weeks until a new hearing is set up. He became quite agitated. He was given the option of either being discharged on the with the understanding that in correction he would likely need to be placed on precautions. The alternative for him was to spend another 24 hours on the psychiatric unit where he could work on some coping skills so that he could feel more contained and be able to function when he does return to correction. He accepted the second approach. He did fairly well. He apologized for his behavior. He became fairly calm in his mood. He did make some statements that he felt that the Abilify was not helping and that he felt dulled in his thinking. He was given some options including recommendation to continue on Abilify for another few weeks to see how it will work for him over time. He was in agreement with that. He was cooperative throughout the remainder of his hospital stay. He was able to engage in discharge planning. CONDITION AT DISCHARGE: Patient was stable. His mood was improved. He voiced no thoughts of harm to self or others. He tolerated his psychotropic medications. RECOMMENDATIONS AND FOLLOWUP: The patient will be discharged and returned to correction. Discharge medication includes Abilify 20 mg a day and Motrin 600 mg q.i.d. p.r.n. He will be followed up through [facility]. MMODL / IJN: [id number] /
[2019-07-10] MEDS: ACETAMINOPHEN TAB 325 MG TAB PO PRN (12:54)
[2019-07-10] MEDS ORDERED: BACLOFEN 10 MG TAB PO SCH (16:00)
[2019-07-10] MEDS ORDERED: IBUPROFEN 600 MG TAB PO SCH (16:00)
== END 2019-07-10 18:02 | DRG 885 ==
LOC: 3MHU 18:47
PROVIDERS: ADMIT Psychiatry & Neurology Psychiatry; ATTEND Psychiatry & Neurology Psychiatry
DX: F31.5 Bipolar disorder, current episode depressed, severe, with psychotic features (principal); R45.851 Suicidal ideations; E87.5 Hyperkalemia; S81.819A Laceration without foreign body, unspecified lower leg, initial encounter; F41.9 Anxiety disorder, unspecified; F84.5 Asperger's syndrome; F15.90 Other stimulant use, unspecified, uncomplicated; F12.90 Cannabis use, unspecified, uncomplicated; F11.90 Opioid use, unspecified, uncomplicated; J45.20 Mild intermittent asthma, uncomplicated; S00.81XA Abrasion of other part of head, initial encounter; S41.112A Laceration without foreign body of left upper arm, initial encounter; Z79.899 Other long term (current) drug therapy; Z87.891 Personal history of nicotine dependence; Z72.89 Other problems related to lifestyle
CPT/HCPCS: 80048

== ENCOUNTER 2019-09-26 18:28 | Observation (INO) | payer OTHER ==
[2019-09-26] MEDS ORDERED: PANTOPRAZOLE 40 MG/10 ML VIAL IVP STA (18:54)
[2019-09-26] MEDS ORDERED: SODIUM CHLORIDE 0.9% 1,000 ML IV STA (18:54)
--- NOTE | 2019-09-26 18:59 | ED ---
General Adult HPI - General Chief complaint: Alcohol Stated complaint: Drinking on meds, vomiting blood Time Seen by Provider: 09/26/19 18:48 Source: patient, family, RN notes reviewed Mode of arrival: wheelchair Limitations: altered mental status - History of Present Illness Initial comments: Patient is a 29-year-old male presenting to the emergency Department with vomiting. Patient admits to drinking alcohol. Patient states he does drink alcohol regularly. Patient did take his medications. Patient is concerned that there may have been some blood in his emesis. Patient is agitated in triage as well as in the room. Patient has bizarre behavior. - Related Data Previous Rx's Medication Instructions Recorded ARIPiprazole [Abilify] 20 mg PO DAILY #30 tab 07/10/19 Baclofen [Lioresal] 10 mg PO TID #90 tab 07/10/19 Docusate [Colace] 100 mg PO DAILY #60 cap 07/10/19 Ibuprofen [Motrin] 600 mg PO TID #90 tab 07/10/19 Montelukast [Singulair] 10 mg PO HS #30 tab 07/10/19 Allergies Allergy/AdvReac Type Severity Reaction Status Date / Time tetanus and diphtheria Allergy Unknown Verified 07/06/19 14:07 toxoids Childhood Review of Systems ROS Statement: Those systems with pertinent positive or pertinent negative responses have been documented in the HPI. ROS Other: All systems not noted in ROS Statement are negative. Constitutional: Denies: fever Eyes: Denies: eye pain ENT: Denies: ear pain Respiratory: Denies: cough Cardiovascular: Denies: chest pain Endocrine: Denies: fatigue Gastrointestinal: Reports: as per HPI, nausea, vomiting Genitourinary: Denies: dysuria Musculoskeletal: Denies: back pain Skin: Denies: rash Past Medical History Past Medical History: Asthma Additional Past Medical History / Comment(s): age 20 -dog bite(plastic sx to facial wounds), Aspergers History of Any Multi-Drug Resistant Organisms: None Reported Past Surgical History: No Surgical Hx Reported Additional Past Surgical History / Comment(s): plastic sx to lip,oral,nose d/t dog bite. Past Anesthesia/Blood Transfusion Reactions: No Reported Reaction Additional Past Anesthesia/Blood Transfusion Reaction / Comment(s): pt has never recieved a blood transfusion Past Psychological History: Bipolar, Depression, Schizophrenia Smoking Status: Current every day smoker Past Alcohol Use History: Occasional Additional Past Alcohol Use History / Comment(s): started smoking age 8 and smokes 3- ppd Past Drug Use History: Marijuana - Past Family History Mother History Unknown: Yes Father History Unknown: Yes General Exam Limitations: altered mental status General appearance: alert, appears intoxicated Head exam: Present: atraumatic Eye exam: Present: normal appearance Neck exam: Present: normal inspection Respiratory exam: Present: normal lung sounds bilaterally Cardiovascular Exam: Present: regular rate, normal rhythm GI/Abdominal exam: Present: soft. Absent: tenderness Extremities exam: Present: normal inspection Neurological exam: Present: alert, oriented X3. Absent: motor sensory deficit Psychiatric exam: Present: agitated Skin exam: Present: normal color Course Vital Signs 09/26/19 09/26/19 18:48 19:54 Temperature 96.8 F L Pulse Rate 78 86 Respiratory 16 22 Rate Blood Pressure 150/85 O2 Sat by Pulse 97 99 Oximetry Procedures - Restraint - Face to Face Restraint Occurrence 1 Patient's Immediate Situation: Endangers self safety, Endangers others' safety, Endangers staff safety, Violent behavior Patient's Reaction to the Intervention: Bizarre Patient's Medical & Behavioral Condition: Awake, Alert Need to Continue or Terminate Restraint or Seclusion: Continue Face to Face Eval of Restraint Date: 09/26/19 Face to Face Eval of Restraint Time: 18:56 Medical Decision Making - Medical Decision Making Patient reevaluated and is more calm. Patient is updated on results and plan. Case was discussed with Dr. Mares, who will admit covering for Dr. Ritchie. - Lab Data Result diagrams: 09/26/19 19:30 09/26/19 19:30 Lab Results 09/26/19 09/26/19 09/26/19 Range/Units 19:30 19:30 19:30 WBC 10.1 (3.8-10.6) k/uL RBC 5.27 (4.30-5.90) m/uL Hgb 16.3 (13.0-17.5) gm/dL Hct 49.2 (39.0-53.0) % MCV 93.3 (80.0-100.0) fL MCH 30.9 (25.0-35.0) pg MCHC 33.1 (31.0-37.0) g/dL RDW 13.7 (11.5-15.5) % Plt Count 173 (150-450) k/uL Neutrophils % 79 % Lymphocytes % 13 % Monocytes % 4 % Eosinophils % 2 % Basophils % 0 % Neutrophils # 8.0 H (1.3-7.7) k/uL Lymphocytes # 1.4 (1.0-4.8) k/uL Monocytes # 0.4 (0-1.0) k/uL Eosinophils # 0.2 (0-0.7) k/uL Basophils # 0.0 (0-0.2) k/uL PT 11.1 (9.0-12.0) sec INR 1.0 (<1.2) APTT 22.3 (22.0-30.0) sec Sodium 144 (137-145) mmol/L Potassium 4.9 (3.5-5.1) mmol/L Chloride 112 H (98-107) mmol/L Carbon Dioxide 24 (22-30) mmol/L Anion Gap 8 mmol/L BUN 6 L (9-20) mg/dL Creatinine 0.95 (0.66-1.25) mg/dL Est GFR (CKD-EPI)AfAm >90 (>60 ml/min/1.73 sqM) Est GFR (CKD-EPI)NonAf >90 (>60 ml/min/1.73 sqM) Glucose 113 H (74-99) mg/dL Calcium 8.8 (8.4-10.2) mg/dL Magnesium 2.3 (1.6-2.3) mg/dL Total Bilirubin 0.4 (0.2-1.3) mg/dL AST 25 (17-59) U/L ALT 36 (21-72) U/L Alkaline Phosphatase 51 (38-126) U/L Total Protein 6.6 (6.3-8.2) g/dL Albumin 4.0 (3.5-5.0) g/dL Urine Color Urine Appearance (Clear) Urine pH (5.0-8.0) Ur Specific [place] (1.001-1.035) Urine Protein (Negative) Urine Glucose (UA) (Negative) Urine Ketones (Negative) Urine Blood (Negative) Urine Nitrite (Negative) Urine Bilirubin (Negative) Urine Urobilinogen (<2.0) mg/dL Ur Leukocyte Esterase (Negative) Urine Opiates Screen (NotDetected) Ur Oxycodone Screen (NotDetected) Urine Methadone Screen (NotDetected) Ur Propoxyphene Screen (NotDetected) Ur Barbiturates Screen (NotDetected) U Tricyclic Antidepress (NotDetected) Ur Phencyclidine Scrn (NotDetected) Ur Amphetamines Screen (NotDetected) U Methamphetamines Scrn (NotDetected) U Benzodiazepines Scrn (NotDetected) Urine Cocaine Screen (NotDetected) U Marijuana (THC) Screen (NotDetected) Serum Alcohol 231 H* mg/dL 09/26/19 Range/Units 19:30 WBC (3.8-10.6) k/uL RBC (4.30-5.90) m/uL Hgb (13.0-17.5) gm/dL Hct (39.0-53.0) % MCV (80.0-100.0) fL MCH (25.0-35.0) pg MCHC (31.0-37.0) g/dL RDW (11.5-15.5) % Plt Count (150-450) k/uL Neutrophils % % Lymphocytes % % Monocytes % % Eosinophils % % Basophils % % Neutrophils # (1.3-7.7) k/uL Lymphocytes # (1.0-4.8) k/uL Monocytes # (0-1.0) k/uL Eosinophils # (0-0.7) k/uL Basophils # (0-0.2) k/uL PT (9.0-12.0) sec INR (<1.2) APTT (22.0-30.0) sec Sodium (137-145) mmol/L Potassium (3.5-5.1) mmol/L Chloride (98-107) mmol/L Carbon Dioxide (22-30) mmol/L Anion Gap mmol/L BUN (9-20) mg/dL Creatinine (0.66-1.25) mg/dL Est GFR (CKD-EPI)AfAm (>60 ml/min/1.73 sqM) Est GFR (CKD-EPI)NonAf (>60 ml/min/1.73 sqM) Glucose (74-99) mg/dL Calcium (8.4-10.2) mg/dL Magnesium (1.6-2.3) mg/dL Total Bilirubin (0.2-1.3) mg/dL AST (17-59) U/L ALT (21-72) U/L Alkaline Phosphatase (38-126) U/L Total Protein (6.3-8.2) g/dL Albumin (3.5-5.0) g/dL Urine Color Light Yellow Urine Appearance Clear (Clear) Urine pH 7.0 (5.0-8.0) Ur Specific [place] 1.009 (1.001-1.035) Urine Protein Negative (Negative) Urine Glucose (UA) Negative (Negative) Urine Ketones Negative (Negative) Urine Blood Negative (Negative) Urine Nitrite Negative (Negative) Urine Bilirubin Negative (Negative) Urine Urobilinogen <2.0 (<2.0) mg/dL Ur Leukocyte Esterase Negative (Negative) Urine Opiates Screen Not Detected (NotDetected) Ur Oxycodone Screen Not Detected (NotDetected) Urine Methadone Screen Not Detected (NotDetected) Ur Propoxyphene Screen Not Detected (NotDetected) Ur Barbiturates Screen Not Detected (NotDetected) U Tricyclic Antidepress Not Detected (NotDetected) Ur Phencyclidine Scrn Not Detected (NotDetected) Ur Amphetamines Screen Not Detected (NotDetected) U Methamphetamines Scrn Not Detected (NotDetected) U Benzodiazepines Scrn Not Detected (NotDetected) Urine Cocaine Screen Not Detected (NotDetected) U Marijuana (THC) Screen Not Detected (NotDetected) Serum Alcohol mg/dL Disposition Clinical Impression: Alcoholic intoxication, Hematemesis Disposition: ADMITTED IP TO THIS HOSP Is patient prescribed a controlled substance at d/c from ED?: No Referrals: Arik Ritchie MD [Primary Care Provider] - 1-2 days Decision Time: 20:17
[2019-09-26 19:44] LABS: Basophils % (A) 0 %; Eosinophils # (A) 0.2 k/uL (0-0.7); Eosinophils % (A) 2 %; HCT 49.2 % (39.0-53.0); HGB 16.3 gm/dL (13.0-17.5); Lymphocytes # (A) 1.4 k/uL (1.0-4.8); Lymphocytes % (A) 13 %; MCH 30.9 pg (25.0-35.0); MCHC 33.1 g/dL (31.0-37.0); MCV 93.3 fL (80.0-100.0); Monocytes # (A) 0.4 k/uL (0-1.0); Monocytes % (A) 4 %; Neutrophils % (A) 79 %; Platelet Count 173 k/uL (150-450); RBC 5.27 m/uL (4.30-5.90); RDW 13.7 % (11.5-15.5); WBC 10.1 k/uL (3.8-10.6)
[2019-09-26 19:52] LABS: Appearance,Urine Clear (Clear); Bilirubin,Urine Negative (Negative); Blood,Urine Negative (Negative); Color,Urine Light Yellow; Glucose,Urine (UA) Negative (Negative); Ketones,Urine Negative (Negative); Leukocyte Esterase,Urine Negative (Negative); Nitrite,Urine Negative (Negative); Protein,Urine Negative (Negative); Specific Gravity,Urine 1.009 (1.001-1.035); Urobilinogen,Urine <2.0 mg/dL (<2.0)
[2019-09-26 19:53] LABS: ALT 36 U/L (21-72); AST 25 U/L (17-59); African American GFR (CKD) >90 (>60 ml/min/1.73 sqM); Alkaline Phosphatase 51 U/L (38-126); Anion Gap 8 mmol/L; Blood Urea Nitrogen 6 mg/dL (9-20); Calcium 8.8 mg/dL (8.4-10.2); Carbon Dioxide 24 mmol/L (22-30); Chloride 112 mmol/L (98-107); Glucose 113 mg/dL (74-99); Magnesium 2.3 mg/dL (1.6-2.3); Non-African American GFR(CKD) >90 (>60 ml/min/1.73 sqM); Potassium 4.9 mmol/L (3.5-5.1); Sodium 144 mmol/L (137-145); Total Bilirubin 0.4 mg/dL (0.2-1.3); Total Protein 6.6 g/dL (6.3-8.2)
[2019-09-26 20:00] LABS: Alcohol 231 mg/dL
[2019-09-26 20:01] LABS: Amphetamine Screen,Urine Not Detected (NotDetected); Barbiturate Screen,Urine Not Detected (NotDetected); Benzodiazepines Screen,Urine Not Detected (NotDetected); Cocaine Screen,Urine Not Detected (NotDetected); Methadone Screen, Urine Not Detected (NotDetected); Opiate Screen,Urine Not Detected (NotDetected); Oxycodone Screen, Urine Not Detected (NotDetected); Phencyclidine Screen,Urine Not Detected (NotDetected); Tricyclic Antidepressant,Urine Not Detected (NotDetected); Urn Cannabinoid Scrn Not Detected (NotDetected)
[2019-09-26 20:05] LABS: Partial Thromboplastin Time 22.3 sec (22.0-30.0); Prothrombin Time 11.1 sec (9.0-12.0)
[2019-09-26] MEDS ORDERED: NALOXONE 0.4 MG/ML 1 ML VIAL IV PRN (20:18)
[2019-09-26] MEDS ORDERED: LORazepam 2 MG/ML INJ IV PRN ×4 (20:19)
[2019-09-26] MEDS ORDERED: THIAMINE 100 MG/ML 2 ML VIAL IM STA (20:19)
[2019-09-26] MEDS ORDERED: THIAMINE 100 MG TAB PO SCH (20:30)
[2019-09-26] MEDS: SODIUM CHLORIDE 0.9% 1,000 ML IV SCH (22:52)
[2019-09-26] MEDS: PANTOPRAZOLE 40 MG/10 ML VIAL IV SCH (22:52)
[2019-09-27 04:12] LABS: Amylase 34 U/L (30-110)
[2019-09-27 06:54] LABS: Basophils % (A) 0 %; Eosinophils # (A) 0.2 k/uL (0-0.7); Eosinophils % (A) 2 %; HCT 46.9 % (39.0-53.0); HGB 15.1 gm/dL (13.0-17.5); Lymphocytes # (A) 1.9 k/uL (1.0-4.8); Lymphocytes % (A) 20 %; MCH 30.4 pg (25.0-35.0); MCHC 32.2 g/dL (31.0-37.0); MCV 94.4 fL (80.0-100.0); Mean Platelet Volume 6.7; Monocytes # (A) 0.5 k/uL (0-1.0); Monocytes % (A) 5 %; Neutrophils # (A) 6.6 k/uL (1.3-7.7); Neutrophils % (A) 71 %; Platelet Count 192 k/uL (150-450); RBC 4.97 m/uL (4.30-5.90); RDW 13.6 % (11.5-15.5); WBC 9.3 k/uL (3.8-10.6)
[2019-09-27 07:05] LABS: ALT 43 U/L (21-72); AST 25 U/L (17-59); African American GFR (CKD) >90 (>60 ml/min/1.73 sqM); Albumin 3.4 g/dL (3.5-5.0); Alkaline Phosphatase 40 U/L (38-126); Anion Gap 7 mmol/L; Blood Urea Nitrogen 8 mg/dL (9-20); Calcium 8.4 mg/dL (8.4-10.2); Carbon Dioxide 22 mmol/L (22-30); Chloride 113 mmol/L (98-107); Glucose 103 mg/dL (74-99); Non-African American GFR(CKD) >90 (>60 ml/min/1.73 sqM); Potassium 4.8 mmol/L (3.5-5.1); Sodium 142 mmol/L (137-145); Total Protein 5.9 g/dL (6.3-8.2)
[2019-09-27] MEDS: PANTOPRAZOLE 40 MG/10 ML VIAL IV SCH (08:26)
[2019-09-27] MEDS: THIAMINE 100 MG TAB PO SCH ×2 (08:26→17:01)
[2019-09-27] MEDS: MULTIVITAMINS, THERA 1 EACH TAB PO SCH (08:26)
--- NOTE | 2019-09-27 09:57 | XR ---
EXAMINATION TYPE: XR chest 2V DATE OF EXAM: 09/27/2019 HISTORY: hematemesis. REFERENCE: Previous study dated 12/02/2018. FINDINGS: Lungs remain clear. Pleural spaces are clear. The heart is not enlarged. IMPRESSION: NORMAL CHEST.
[2019-09-27] MEDS ORDERED: LITHIUM CARBONATE 300 MG CAP PO SCH (11:45)
--- NOTE | 2019-09-27 11:49 | P.HPIM ---
History of Present Illness H&P Date: 09/27/19 Chief Complaint: EtOH intoxication, hematemesis This is a 29-year-old male who presented to the emergency room with vomiting. The patient was drinking a large amount of alcohol and vomited bright red blood. He was dropped off to the hospital by his friends. Patient was unable to remember exactly what occurred. During the time in the emergency room patient was extremely agitated. At this time patient is ambulating in room on the telephone. He is unable to recall how much she drinks the night before or what had occurred previous to hospitalization. Patient has not had any vomiting since arrival. Begin with his friend he drank a quarter of tequila last night he had a large emesis with bright red blood noted. Patient's past medical history is significant for asthma, bipolar, just depression, schizophrenia. Patient is an every day smoker he has been smoking since he was 83 packs per day. Patient also uses marijuana and benzos. Review of Systems Review Of Systems: Constitutional: No fever, no chills, no night sweats. No weight change. No weakness, fatigue or lethargy. No daytime sleepiness. EENT: No headache. No blurred vision or double vision, no loss of vision. No loss of Hearing, no ringing in the ears, no dizziness. No nasal drainage or congestion. No epistaxis. No sore throat. Lungs: No shortness of breath, cough, no sputum production. No wheezing. Cardiovascular: No chest pain, no lower extremity edema. No palpitations. No paroxysmal nocturnal dyspnea. No orthopnea. No lightheadedness or dizziness. No syncopal episodes. Abdominal: no abdominal discomfort. No nausea, vomiting. no diarrhea. No c onstipation. No bloody or tarry stools. no loss of appetite. Genitourinary: No dysuria, increased frequency, urgency. No urinary retention. Musculoskeletal: No myalgias. No muscle weakness, no gait dysfunction, no frequent falls. No back pain. No neck pain. Integumentary: No wounds, no lesions. No rash or pruritus. No unusual bruising. No change in hair or nails. Neurologic: No aphasia. No facial droop. No change in mentation. No head injury. No headache. No paralysis. No paresthesia. Psychiatric: No depression. No anxiety. No mood swings. Endocrine: No abnormal blood sugars. No weight change. No excessive sweating or thirst. Past Medical History Past Medical History: Asthma Additional Past Medical History / Comment(s): age 20 -dog bite(plastic sx to facial wounds), Aspergers History of Any Multi-Drug Resistant Organisms: None Reported Past Surgical History: No Surgical Hx Reported Additional Past Surgical History / Comment(s): plastic sx to lip,oral,nose d/t dog bite. Past Anesthesia/Blood Transfusion Reactions: No Reported Reaction Additional Past Anesthesia/Blood Transfusion Reaction / Comment(s): pt has never recieved a blood transfusion Past Psychological History: Bipolar, Depression, Schizophrenia Smoking Status: Current every day smoker Additional Past Alcohol Use History / Comment(s): started smoking age 8 and smokes 3- ppd Past Drug Use History: Marijuana - Past Family History Mother History Unknown: Yes Father History Unknown: Yes Medications and Allergies Home Medications Medication Instructions Recorded Confirmed Type Baclofen [Lioresal] 10 mg PO TID #90 tab 07/10/19 09/27/19 Rx Docusate [Colace] 100 mg PO DAILY #60 cap 07/10/19 09/27/19 Rx Ibuprofen [Motrin] 600 mg PO TID #90 tab 07/10/19 09/27/19 Rx Montelukast [Singulair] 10 mg PO HS #30 tab 07/10/19 09/27/19 Rx [place] Carbonate 150 mg PO BID 09/27/19 09/27/19 History [place] Carbonate 300 mg PO BID 09/27/19 09/27/19 History OLANZapine [ZyPREXA] 10 mg PO DAILY 09/27/19 09/27/19 History Allergies Allergy/AdvReac Type Severity Reaction Status Date / Time tetanus and diphtheria Allergy Unknown Verified 07/06/19 14:07 toxoids Childhood Physical Exam Vitals: Vital Signs Temp Pulse Pulse Resp BP BP Pulse Ox 09/27/19 07:00 98.6 F 104 H 18 125/65 95 09/26/19 21:04 80 18 119/70 98 09/26/19 19:54 86 22 99 09/26/19 18:48 96.8 F L 78 16 150/85 97 Intake and Output 09/26/19 09/27/19 09/27/19 22:59 06:59 14:59 Intake Total 800 800 Balance 800 800 Intake: IV 800 Sodium Chloride 0.9% 1, 800 000 ml @ 100 mls/hr IV . Q10H STA Rx#:[id number] Intake, IV Titration 800 Amount Sodium Chloride 0.9% 1, 800 000 ml @ 100 mls/hr IV . Q10H STA Rx#:[id number] Other: # Voids 3 Weight 113.398 kg General Appearance: Alert, cooperative, no distress, appears stated age. Neck HEENT: Supple, no lymphadenopathy, no thyroid enlargement, no carotid bruits. Lungs: Clear to auscultation without crackles or wheezes no rhonchi, no deformity. Chest Wall: Chest wall normal expansion with deep inspiration no tenderness and no deformity was found on exam, no costochondral pain or discomfort. Heart: Regular rate and rhythm, S1, S2 normal, no murmur, rub or gallop. Back: Symmetric, no curvature, ROM normal, no CVA tenderness. Abdomen: Soft, non-tender, no rebound or rigidity, no hepatosplenomegaly. Extremities: Extremities normal, atraumatic, no cyanosis or edema. Pulses: 2+ and symmetric. Skin: Skin color, texture, tugor normal, no rashes or lesions. Neurologic: Alert oriented x3 cranial nerves II through XII intact, no motor deficit, no abnormal balance or gait Results CBC & Chem 7: 09/27/19 06:16 09/27/19 06:16 Labs: Abnormal Lab Results - Last 24 Hours (Table) 09/26/19 09/26/19 09/27/19 Range/Units 19:30 19:30 06:16 Neutrophils # 8.0 H (1.3-7.7) k/uL Chloride 112 H 113 H (98-107) mmol/L BUN 6 L 8 L (9-20) mg/dL Glucose 113 H 103 H (74-99) mg/dL Total Protein 5.9 L (6.3-8.2) g/dL Albumin 3.4 L (3.5-5.0) g/dL Serum Alcohol 231 H* mg/dL Thrombosis Risk Factor Assmnt - Choose All That Apply Any of the Below Risk Factors Present?: Yes Each Factor Represents 1 point: Age 41-60 years Other Risk Factors: No Thrombosis Risk Factor Assessment Total Risk Factor Score: 1 Thrombosis Risk Factor Assessment Level: Low Risk Assessment and Plan Plan: 1. EtOH intoxication. Continue with hydration 0.9 normal saline at 20 mL per hour. Lorazepam as needed. Theragran one tablet each daily, vitamin B1 100 mg by mouth twice a day with meals. Discussed with with patient EtOH consumption. 2. Hematemesis rule out GI bleed. Consult gastroenterology. Continue to monitor CBC. 3. Bipolar. Continue Abilify, lithium 450 mg twice a day, Zyprexa 10 mg by mouth daily 4. Schizophrenia. Continue Zyprexa 5. Nicotine dependence. Discussed smoking cessation, nicotine patch offered and declined. 6. Asthma. Continue with singular 10 mg daily at bedtime. 7. DVT prophylaxis. Ambulation 8. GI prophylaxis. Protonix 40 mg IV daily CODE STATUS: Full code Discharge plan: Possibly home tomorrow Impression and plan of care have been directed as dictated by the signing physician. Lin Lynn nurse practitioner acting as scribe for signing physician.
[2019-09-27] MEDS: LITHIUM CARBONATE 150 MG CAP PO SCH ×2 (13:05→19:59)
[2019-09-27] MEDS: OLANZapine 10 MG TAB PO SCH (13:06)
[2019-09-27] MEDS: SODIUM CHLORIDE 0.9% 1,000 ML IV SCH (17:01)
[2019-09-27] MEDS ORDERED: MONTELUKAST 10 MG TAB PO SCH (21:00)
--- NOTE | 2019-09-27 22:50 | P.CONS ---
History of Present Illness - Reason for Consult Consult date: 09/27/19 GI bleed Requesting physician: Cuca Griffin - Chief Complaint Nausea, vomiting, hematemesis - History of Present Illness 29-year-old male with a medical history significant for asthma, bipolar disorder, depression and schizophrenia who presented to the hospital due to co mplaints of vomiting blood. The patient had been drinking earlier in the night with his friends and subsequently vomited a large amount of blood per reports. The patient does not remember this occurring was dropped off by his friends due to the above-mentioned complaint. He denies any further bleeding since that time. He has tolerated his diet. No bowel movements reported. No abdominal pain reported. He denies any prior episodes of GI bleeding. He denies any prior endoscopic history. He does report use of ibuprofen daily. Hemoglobin was 16.3 on presentation and subsequently trended to 15.1. BUN was normal at 8. Alcohol level was 231. Review of Systems REVIEW OF SYSTEMS: CONSTITUTIONAL: Denies any fevers, chills, weight change or fatigue. CARDIOVASCULAR: Denies any chest pain, palpitations high or low blood pressures RESPIRATORY: Denies any shortness of breath, hemoptysis or cough. GENITOURINARY: No dysuria or hematuria. MUSCULOSKELETAL: No weakness reported. SKIN: Denies any new rashes or lesions, jaundice or pallor. PSYCHIATRIC: The patient is a history of schizophrenia and depression. NEUROLOGY: Denies headache, denies any new focal deficits. EARS/NOSE/THROAT: No recent hearing change, congestion, nasal discharge or sore throat. EYES: No pain in eyes, discharge or change in vision. GASTROINTESTINAL: As per HPI. Past Medical History Past Medical History: Asthma Additional Past Medical History / Comment(s): age 20 -dog bite(plastic sx to facial wounds), Aspergers History of Any Multi-Drug Resistant Organisms: None Reported Past Surgical History: No Surgical Hx Reported Additional Past Surgical History / Comment(s): plastic sx to lip,oral,nose d/t dog bite. Past Anesthesia/Blood Transfusion Reactions: No Reported Reaction Additional Past Anesthesia/Blood Transfusion Reaction / Comm: pt has never re cieved a blood transfusion Past Psychological History: Bipolar, Depression, Schizophrenia Smoking Status: Current every day smoker Additional Past Alcohol Use History / Comment(s): started smoking age 8 and smokes 3- ppd Past Drug Use History: Marijuana - Past Family History Mother History Unknown: Yes Father History Unknown: Yes Medications and Allergies Home Medications Medication Instructions Recorded Confirmed Type Baclofen [Lioresal] 10 mg PO TID #90 tab 07/10/19 09/27/19 Rx Docusate [Colace] 100 mg PO DAILY #60 cap 07/10/19 09/27/19 Rx Ibuprofen [Motrin] 600 mg PO TID #90 tab 07/10/19 09/27/19 Rx Montelukast [Singulair] 10 mg PO HS #30 tab 07/10/19 09/27/19 Rx [place] Carbonate 150 mg PO BID 09/27/19 09/27/19 History [place] Carbonate 300 mg PO BID 09/27/19 09/27/19 History OLANZapine [ZyPREXA] 10 mg PO DAILY 09/27/19 09/27/19 History Allergies Allergy/AdvReac Type Severity Reaction Status Date / Time tetanus and diphtheria Allergy Unknown Verified 07/06/19 14:07 toxoids Childhood Physical Exam Vitals: Vital Signs Temp Pulse Pulse Resp BP BP Pulse Ox 09/27/19 07:00 98.6 F 104 H 18 125/65 95 09/26/19 21:04 80 18 119/70 98 09/26/19 19:54 86 22 99 09/26/19 18:48 96.8 F L 78 16 150/85 97 Intake and Output 09/26/19 09/27/19 09/27/19 22:59 06:59 14:59 Intake Total 800 800 Balance 800 800 Intake: IV 800 Sodium Chloride 0.9% 1, 800 000 ml @ 100 mls/hr IV . Q10H STA Rx#:[id number] Intake, IV Titration 800 Amount Sodium Chloride 0.9% 1, 800 000 ml @ 100 mls/hr IV . Q10H STA Rx#:[id number] Other: # Voids 3 Weight 113.398 kg On physical examination, patient appears comfortable in no apparent distress. HEAD: Normocephalic, atraumatic. EYES: No scleral icterus. No conjunctival injection. MOUTH: No lesions, tongue midline. NECK: Trachea midline, no gross abnormalities. CHEST: Clear to auscultation with no wheezing or rhonchi appreciated. HEART: Regular rate and rhythm. ABDOMEN: Soft, obese. Bowel sounds are positive. No organomegaly. No guarding or rigidity. EXTREMITIES: No pedal edema. SKIN: No rashes, no jaundice. NEUROLOGIC: Alert and oriented x3. No focal deficits. Results CBC & Chem 7: 09/27/19 06:16 09/27/19 06:16 Labs: Abnormal Lab Results - Last 24 Hours (Table) 09/26/19 09/26/19 09/27/19 Range/Units 19:30 19:30 06:16 Neutrophils # 8.0 H (1.3-7.7) k/uL Chloride 112 H 113 H (98-107) mmol/L BUN 6 L 8 L (9-20) mg/dL Glucose 113 H 103 H (74-99) mg/dL Total Protein 5.9 L (6.3-8.2) g/dL Albumin 3.4 L (3.5-5.0) g/dL Serum Alcohol 231 H* mg/dL Chest x-ray: report reviewed (Normal x-ray of the chest.) Assessment and Plan (1) Hematemesis Narrative/Plan: 29-year-old male presents to the hospital intoxicated due to concerns over hemat emesis. The patient does not remember what occurred, however per reports patient had an episode of bloody vomitus and was brought to the ER by his friends further evaluation. No further nausea, vomiting or hematemesis since presentation. No bowel movements reported, no melena or hematochezia reported. Hemoglobin has remained stable at 15.1 from 16.3 previously with no elevation in BUN. Likely representing Dalia-Brewster tear with other differentials including peptic ulcer disease, esophagitis, gastritis or other etiology. Current Visit: Yes Status: Acute Code(s): K92.0 - HEMATEMESIS SNOMED Code( s): 5708122 (2) Alcoholic intoxication Current Visit: Yes Status: Acute Code(s): F10.929 - ALCOHOL USE, UNSPECIFIED WITH INTOXICATION, UNSPECIFIED SNOMED Code(s): 17343207 Plan: Supportive care Okay for diet Continue to monitor hemoglobin and transfuse as needed Continue to monitor clinically Continue Protonix daily Avoid NSAID use Alcohol abstinence Avoid NSAID use No plans for endoscopic evaluation at this time, the patient has further symptoms or fall in hemoglobin we'll consider at that time If patient remains stable okay for discharge from gastroenterology standpoint Thank you for allowing us to participate in the care of this patien, we will continue to followt
[2019-09-28 01:18] VITALS: RESP 16
[2019-09-28 07:10] LABS: Basophils # (A) 0.1 k/uL (0-0.2); Basophils % (A) 1 %; Eosinophils # (A) 0.3 k/uL (0-0.7); Eosinophils % (A) 4 %; HCT 47.5 % (39.0-53.0); HGB 15.6 gm/dL (13.0-17.5); Lymphocytes # (A) 1.8 k/uL (1.0-4.8); Lymphocytes % (A) 24 %; MCH 30.8 pg (25.0-35.0); MCHC 32.9 g/dL (31.0-37.0); MCV 93.7 fL (80.0-100.0); Mean Platelet Volume 6.9; Monocytes # (A) 0.5 k/uL (0-1.0); Monocytes % (A) 6 %; Neutrophils # (A) 4.6 k/uL (1.3-7.7); Neutrophils % (A) 63 %; Platelet Count 164 k/uL (150-450); RBC 5.07 m/uL (4.30-5.90); RDW 13.6 % (11.5-15.5); WBC 7.4 k/uL (3.8-10.6)
[2019-09-28 07:33] LABS: African American GFR (CKD) >90 (>60 ml/min/1.73 sqM); Anion Gap 4 mmol/L; Blood Urea Nitrogen 17 mg/dL (9-20); Calcium 9.1 mg/dL (8.4-10.2); Carbon Dioxide 25 mmol/L (22-30); Chloride 110 mmol/L (98-107); Glucose 87 mg/dL (74-99); Non-African American GFR(CKD) >90 (>60 ml/min/1.73 sqM); Sodium 139 mmol/L (137-145)
[2019-09-28 08:02] VITALS: BP 126/61; PULSE 75; TEMP 98.4
[2019-09-28] MEDS: LITHIUM CARBONATE 150 MG CAP PO SCH (08:17)
[2019-09-28] MEDS: PANTOPRAZOLE 40 MG/10 ML VIAL IV SCH (08:17)
[2019-09-28] MEDS: THIAMINE 100 MG TAB PO SCH (08:17)
[2019-09-28] MEDS: OLANZapine 10 MG TAB PO SCH (08:17)
[2019-09-28] MEDS: MULTIVITAMINS, THERA 1 EACH TAB PO SCH (08:17)
--- NOTE | 2019-09-28 12:36 | P.DS ---
Providers Date of admission: 09/26/19 20:18 Attending physician: Cuca Griffin MD Consults: 09/26/19 20:18 Consult Physician Urgent Consulting Provider: Espinoza Silva Consult Reason/Comments: gi hemorrhage Do you want consulting provider notified?: Yes Primary care physician: Arik [facility] Course: This is a 29-year-old male who presented to the emergency room with vomiting. The patient was drinking a large amount of alcohol and vomited bright red blood. He was dropped off to the hospital by his friends. Patient was unable to remember exactly what occurred. During the time in the emergency room patient was extremely agitated. At this time patient is ambulating in room on the telephone. He is unable to recall how much she drinks the night before or what had occurred previous to hospitalization. Patient has not had any vomiting since arrival. Begin with his friend he drank a quarter of tequila last night he had a large emesis with bright red blood noted. Patient's past medical history is significant for asthma, bipolar, just depression, schizophrenia. Patient is an every day smoker he has been smoking since he was 83 packs per day. Patient also uses marijuana and benzos. 09/28: Patient feeling much better. He has not had any episodes of vomiting, no bloody stools or black tarry stools. Patient is anxious and ready to go home. Discussed with patient the importance of refraining from EtOH consumption. Discussed with patient signs and symptoms of GI bleed. Patient verbalized understanding. Discharge diagnosis; 1. EtOH intoxication. 2. Hematemesis rule out GI bleed. 3. Bipolar. 4. Schizophrenia. 5. Nicotine dependence. 6. Asthma. Discharge disposition: Home with self-care Impression and plan of care have been directed as dictated by the signing physician. Lin Lynn nurse practitioner acting as scribe for signing physician. Cc Dr. Ritchie Plan - Discharge Summary New Discharge Prescriptions: Continue Ibuprofen [Motrin] 600 mg PO TID #90 tab Docusate [Colace] 100 mg PO DAILY #60 cap Montelukast [Singulair] 10 mg PO HS #30 tab Baclofen [Lioresal] 10 mg PO TID #90 tab OLANZapine [ZyPREXA] 10 mg PO DAILY [place] Carbonate 300 mg PO BID [place] Carbonate 150 mg PO BID Discharge Medication List Baclofen [Lioresal] 10 mg PO TID #90 tab 07/10/19 [Rx] Docusate [Colace] 100 mg PO DAILY #60 cap 07/10/19 [Rx] Ibuprofen [Motrin] 600 mg PO TID #90 tab 07/10/19 [Rx] Montelukast [Singulair] 10 mg PO HS #30 tab 07/10/19 [Rx] [place] Carbonate 150 mg PO BID 09/27/19 [History] [place] Carbonate 300 mg PO BID 09/27/19 [History] OLANZapine [ZyPREXA] 10 mg PO DAILY 09/27/19 [History] Follow up Appointment(s)/Referral(s): Arik Ritchie MD [Primary Care Provider] - 1-2 days (Office closed at time of discharge please call SundaySeptember 29 to set up a follow up appointment) Patient Instructions/Handouts: Alcohol Intoxication (DC) Discharge Disposition: HOME SELF-CARE
== END 2019-09-28 09:34 | disposition home or self-care (01) ==
LOC: EC 18:28 → 4SSUR 20:18
PROVIDERS: ADMIT Internal Medicine; ATTEND Internal Medicine
DX: F10.129 Alcohol abuse with intoxication, unspecified (principal); K92.0 Hematemesis; R45.1 Restlessness and agitation; J45.909 Unspecified asthma, uncomplicated; Y90.7 Blood alcohol level of 200-239 mg/100 ml; F31.9 Bipolar disorder, unspecified; F20.9 Schizophrenia, unspecified; F84.5 Asperger's syndrome; F17.210 Nicotine dependence, cigarettes, uncomplicated; Z79.1 Long term (current) use of non-steroidal anti-inflammatories (NSAID); Z79.899 Other long term (current) drug therapy; Z88.7 Allergy status to serum and vaccine; Z87.828 Personal history of other (healed) physical injury and trauma; Z78.1 Physical restraint status
CPT/HCPCS: 96376 ×2; 96361 ×3; 96374; 96375; 99285; 36415; 80053 ×2; 80048; 82150; 83690; 83735; 85025 ×3; 85610; 85730; 81003; 80306; 71046; G0378 ×3; G0480; J2060; C9113 ×3; 80320

== ENCOUNTER 2020-10-15 23:41 | Emergency (ER) | payer MEDICAID, OTHER ==
[2020-10-15 23:46] VITALS: BP 126/81; PULSE 99; RESP 18; TEMP 99.4
[2020-10-16] MEDS ORDERED: predniSONE 50 MG TAB PO STA (00:25)
[2020-10-16] MEDS ORDERED: AMOXICILLIN 500MG STARTER PACK 3 CAP BTL PO STA (00:25)
[2020-10-16] MEDS ORDERED: ACETAMINOPHEN TAB 500 MG TAB PO STA (00:26)
--- NOTE | 2020-10-16 00:28 | ED ---
ENT HPI - General Chief complaint: ENT Stated complaint: ENT Time Seen by Provider: 10/15/20 23:54 Source: patient, RN notes reviewed, old records reviewed Mode of arrival: ambulatory Limitations: no limitations - History of Present Illness Initial comments: 30-year-old male presents today with sore throat onset tonight. Patient states it's painful return for him to swallow. He denies any history of sick contacts. Denies any recent Motrin or Tylenol for aches and fever. Patient denies any cough shortness of breath. - Related Data Home Medications Medication Instructions Recorded Confirmed [place] Carbonate 150 mg PO BID 09/27/19 09/27/19 [place] Carbonate 300 mg PO BID 09/27/19 09/27/19 OLANZapine [ZyPREXA] 10 mg PO DAILY 09/27/19 09/27/19 Previous Rx's Medication Instructions Recorded Baclofen [Lioresal] 10 mg PO TID #90 tab 07/10/19 Docusate [Colace] 100 mg PO DAILY #60 cap 07/10/19 Ibuprofen [Motrin] 600 mg PO TID #90 tab 07/10/19 Montelukast [Singulair] 10 mg PO HS #30 tab 07/10/19 Amoxicillin 500 mg PO Q8H #21 capsule 10/16/20 Lidocaine Viscous 2% [Xylocaine 5 ml MUCOUS MEM TID #100 ml 10/16/20 Viscous] Allergies Allergy/AdvReac Type Severity Reaction Status Date / Time tetanus and diphtheria Allergy Unknown Verified 10/15/20 23:46 toxoids Childhood Review of Systems ROS Statement: Those systems with pertinent positive or pertinent negative responses have been documented in the HPI. ROS Other: All systems not noted in ROS Statement are negative. Past Medical History Past Medical History: Asthma Additional Past Medical History / Comment(s): age 20 -dog bite(plastic sx to facial wounds), Aspergers History of Any Multi-Drug Resistant Organisms: None Reported Past Surgical History: No Surgical Hx Reported Additional Past Surgical History / Comment(s): plastic sx to lip,oral,nose d/t dog bite. Past Anesthesia/Blood Transfusion Reactions: No Reported Reaction Additional Past Anesthesia/Blood Transfusion Reaction / Comment(s): pt has never recieved a blood transfusion Past Psychological History: Bipolar, Depression, Schizophrenia Smoking Status: Current every day smoker Past Alcohol Use History: None Reported Past Drug Use History: Marijuana - Past Family History Mother History Unknown: Yes Father History Unknown: Yes General Exam - General Exam Comments Initial Comments: 30-year-old male. No distress. Limitations: no limitations General appearance: alert, in no apparent distress Head exam: Present: atraumatic, normocephalic, normal inspection Eye exam: Present: normal appearance, PERRL, EOMI. Absent: scleral icterus, conjunctival injection, periorbital swelling ENT exam: Present: normal exam, mucous membranes moist. Absent: other (Patient has erythematous oropharynx. He has enlarged left tonsil. No signs of infection today. No adhesion to uvula. Patient is tender lymphadenopathy) Neck exam: Present: normal inspection. Absent: tenderness, meningismus, lymphadenopathy Respiratory exam: Present: normal lung sounds bilaterally. Absent: respiratory distress, wheezes, rales, rhonchi, stridor Cardiovascular Exam: Present: regular rate, normal rhythm, normal heart sounds. Absent: systolic murmur, diastolic murmur, rubs, gallop, clicks GI/Abdominal exam: Present: soft, normal bowel sounds. Absent: distended, tenderness, guarding, rebound, rigid Extremities exam: Present: normal inspection, full ROM, normal capillary refill. Absent: tenderness, pedal edema, joint swelling, calf tenderness Back exam: Present: normal inspection Neurological exam: Present: alert, oriented X3, CN II-XII intact Psychiatric exam: Present: normal affect, normal mood Skin exam: Present: warm, dry, intact, normal color. Absent: rash Course Vital Signs 10/15/20 23:43 Temperature 99.4 F Pulse Rate 99 Respiratory 18 Rate Blood Pressure 126/81 O2 Sat by Pulse 97 Oximetry Medical Decision Making - Medical Decision Making 30-year-old male presents with 1 day of sore throat. Discussed his erythematous oropharynx with enlarged left tonsil. Does have some tender adenopathy. Discussed with the significant erythematous or painful treated Patient for bacterial pharyngitis. Could also be viral. Discussed if he developed a rash with amoxicillin could be consistent with mononucleosis. Patient will be advised to have close follow-up with PCP. All questions answered. - Lab Data Lab Results 10/16/20 Range/Units 00:32 Group A Strep Rapid Negative (Negative) Disposition Clinical Impression: Pharyngitis Disposition: HOME SELF-CARE Condition: Good Instructions (If sedation given, give patient instructions): Pharyngitis (ED) Additional Instructions: Alternate Motrin and Tylenol. Take medication as prescribed. Return to the ED if any alarming signs or symptoms occur. Prescriptions: Amoxicillin 500 mg PO Q8H #21 capsule Lidocaine Viscous 2% [Xylocaine Viscous] 5 ml MUCOUS MEM TID #100 ml Is patient prescribed a controlled substance at d/c from ED?: No Referrals: Arik Ritchie MD [Primary Care Provider] - 1-2 days Time of Disposition: 03:00
== END 2020-10-16 00:42 | disposition home or self-care (01) ==
LOC: EC 23:41
DX: J02.9 Acute pharyngitis, unspecified (principal); F17.200 Nicotine dependence, unspecified, uncomplicated; Z88.7 Allergy status to serum and vaccine
CPT/HCPCS: 87081; 87430; 99283; J7512